=== PATIENT | female | born 1980 | race Caucasian/White ===

== ENCOUNTER 2016-11-08 13:42 | Emergency (ER) | payer OTHER ==
--- NOTE | 2016-11-08 15:45 | ERPHSYRPT ---
- History of Present Illness Time Seen by Provider: 11/08/16 15:40 Source: patient Exam Limitations: no limitations Physician History: The patient is a 36-year-old female who complains of lower left back pain and left hip pain for 4 days. [place] and did nothing strenuous but was not comfortable on the ride home because of the pain. The pain has continued to worsen over the last few days. She took Tylenol and ibuprofen yesterday but took nothing today. She saw a chiropractor yesterday who manipulated her. The pain is worse today. She complains that the chiropractor did not do any x-rays. Her past medical history is significant for GERD, anxiety, and depression. Timing/Duration: day(s) (4) Method of Injury: unknown Quality: aching Back Pain Location: lumbar spine Severity of Pain-Max: moderate Severity of Pain-Current: moderate Modifying Factors: Improves With: pain medication Associated Symptoms: denies symptoms Previous symptoms: no prior history Allergies/Adverse Reactions: fluconazole [From Diflucan] Allergy (Intermediate, Verified 11/08/16 15:33) Blisters hydromorphone HCl [From Dilaudid] Allergy (Intermediate, Verified 11/08/16 15:33 ) Itching morphine Allergy (Intermediate, Verified 11/08/16 15:33) itch Home Medications: Fluoxetine HCl [Prozac] 20 mg PO DAILY 01/11/15 [History] Lorazepam 0.5 mg [Ativan 0.5 MG] 0.5 mg PO DAILY PRN PRN 01/11/15 [History ] Loperamide HCl 2 mg [Imodium 2 mg] 2 mg PO QID PRN PRN 06/25/15 [History] Hx Tetanus, Diphtheria Vaccination/Date Given: Yes Hx Influenza Vaccination/Date Given: No Hx Pneumococcal Vaccination/Date Given: No - Review of Systems Constitutional: No Fever, No Chills Eyes: No Symptoms Ears, Nose, & Throat: No Symptoms Respiratory: No Cough, No Dyspnea Cardiac: No Chest Pain, No Edema, No Syncope Abdominal/Gastrointestinal: No Abdominal Pain, No Nausea, No Vomiting, No Diarrhea Genitourinary Symptoms: No Dysuria Musculoskeletal: Back Pain Skin: No Rash Neurological: No Dizziness, No Focal Weakness, No Sensory Changes Psychological: No Symptoms Endocrine: No Symptoms Hematologic/Lymphatic: No Symptoms Immunological/Allergic: No Symptoms All Other Systems: Reviewed and Negative - Past Medical History Pertinent Past Medical History: Yes Neurological History: No Pertinent History ENT History: No Pertinent History Cardiac History: Hypertension Respiratory History: No Pertinent History Endocrine Medical History: No Pertinent History Musculoskeletal History: No Pertinent History GI Medical History: Gallbladder Disease History: No Pertinent History Psycho-Social History: Anxiety Female Reproductive Disorders: No Pertinent History Other Medical History: no longer tx for hypertension presumed ulcer no scope - Past Surgical History Past Surgical History: Yes Gastrointestinal: Cholecystectomy Genitourinary: No Pertinent History Musculoskeletal: No Pertinent History Female Surgical History: Section, Tubal Ligation Other Surgical History: BILAT FEET--BUNIONS - Social History Smoking Status: Light tobacco smoker Exposure to second hand smoke: No Drug Use: none Patient Lives Alone: No - Nursing Vital Signs Nursing Vital Signs: Initial Vital Signs Temperature 99.1 F 11/08/16 15:27 Pulse Rate 82 11/08/16 15:27 Respiratory Rate 16 11/08/16 15:27 Blood Pressure 137/89 11/08/16 15:27 O2 Sat by Pulse Oximetry 98 11/08/16 15:27 Pain Scale Pain Intensity 10 - Physical Exam General Appearance: mild distress Eye Exam: PERRL/EOMI, eyes nml inspection Ears, Nose, Throat Exam: normal ENT inspection Neck Exam: normal inspection, non-tender, supple, full range of motion, No meningismus, No midline tenderness Respiratory Exam: normal breath sounds, lungs clear, No respiratory distress Cardiovascular Exam: regular rate/rhythm, normal heart sounds Gastrointestinal Exam: soft, No tenderness, No mass Pelvic Exam: not done Rectal Exam: not done Back Exam: decreased range of motion, other (Palpation of the lower back reveals tenderness of the distal portion of the left paraspinous muscle. 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 nml as tested, normal mood/affect, nml station & gait, sensation nml, No motor deficits Skin Exam: normal color, warm, dry, No rash SpO2 Interpretation: normal - Radiology Exams Left Hip X-ray Interpretation: Interpreted by me, Negative L-Spine X-ray Interpretation: Interpreted by me, Negative Ordered Tests: Active Orders 24 hr Category Date Time Status HIP UNI (2V) INCL PEL IF DONE Stat Exams 11/08/16 15:51 Taken LUMBAR LIMITED (2 OR 3 VIEWS) Stat Exams 11/08/16 15:50 Taken UA W/ MICROSCOPIC Stat Lab 11/08/16 17:15 Completed Medication Summary Discontinued Medications Generic Name Dose Route Start Last Admin Trade Name Mackenzie PRN Reason Stop Dose Admin Dexamethasone Sodium Phosphate 10 mg 11/08/16 15:50 11/08/16 16:11 Decadron 10mg Inj. IM 11/08/16 15:51 10 mg STAT ONE Administration Dexamethasone Sodium Phosphate Confirm 11/08/16 15:58 Decadron 10mg Inj. Administered 11/08/16 15:59 Dose 10 mg .ROUTE .STK-MED ONE Ketorolac Tromethamine 60 mg 11/08/16 15:50 11/08/16 16:11 Toradol 30 Mg Injection IM 11/08/16 15:51 60 mg STAT ONE Administration Ketorolac Tromethamine Confirm 11/08/16 15:57 Toradol 30 Mg Injection Administered 11/08/16 15:58 Dose 60 mg .ROUTE .STK-MED ONE Lab/Rad Data: Laboratory Results 11/08/16 Range/Units 17:15 Ur Collection Type CCMS Urine Color YELLOW (YELLOW) Urine Appearance CLEAR (CLEAR) Urine pH 5.0 (5-6) Ur Specific [place] 1.020 (1.005-1.025) Urine Protein NEGATIVE (Negative) Urine Ketones NEGATIVE (NEGATIVE) Urine Blood TRACE NON-HEM (0-5) [place]/ul Urine Nitrite NEGATIVE (NEGATIVE) Urine Bilirubin NEGATIVE (NEGATIVE) Urine Urobilinogen NORMAL (0-1) mg/dL Ur Leukocyte Esterase NEGATIVE (NEGATIVE) Urine Microscopic RBC 0-2 (0-2) /HPF Ur Epithelial Cells MODERATE (FEW) /HPF Urine Mucus SLIGHT (NEGATIVE) /HPF Urine Glucose NEGATIVE (NEGATIVE) mg/dL Specimen Received 11-08-16 1739 - Progress Progress: improved Counseled pt/family regarding: lab results, diagnosis, rad results - Departure Time of Disposition: 17:54 Departure Disposition: Home Clinical Impression: Back pain, Hip pain Condition: Stable Critical Care Time: No Additional Instructions: You have low back pain and left hip pain. You were given a Toradol 60 mg and Decadron 10 mg IM injections in the ER. Apply ice to the areas as needed. Take Tylenol and ibuprofen as needed. Take Flexeril 5 mg every 8 hours as needed. Follow-up as needed. Prescriptions: Cyclobenzaprine HCl [Flexeril] 5 mg PO Q8H PRN PRN #10 tablet PRN Reason: Pain
[2016-11-08] MEDS ORDERED: TORAdol 30 mg Injection IM ONE (15:50)
[2016-11-08] MEDS ORDERED: DECADRON 10MG INJ. IM ONE (15:50)
[2016-11-08] MEDS ORDERED: TORAdol 30 mg Injection ONE (15:57)
[2016-11-08] MEDS ORDERED: DECADRON 10MG INJ. ONE (15:58)
[2016-11-08 17:39] LABS: Bilirubin NEGATIVE (NEGATIVE); Blood TRACE NON-HEM Ery/ul (0-5); COMPLETE URINE MICROSCOPIC? YES; Collection Type CCMS; Glucose NEGATIVE (NEGATIVE); Leukocyte Esterase NEGATIVE (NEGATIVE)
[2016-11-08 17:40] LABS: Mucus SLIGHT /HPF (NEGATIVE)
[2016-11-08 17:41] LABS: ADD URINE CULTURE? NO (NO); Epithelial Cells MODERATE /HPF (FEW)
[2016-11-08 18:07] VITALS: BP 139/88; PULSE 85; O2SAT 96
--- NOTE | 2016-11-08 22:29 | XRAY ---
Indication: Left hip pain for 5 days. No known injury. Comparison: None 2 views of the left hip demonstrates normal bones, articulation, and soft tissues.
--- NOTE | 2016-11-08 22:31 | XRAY ---
Indication: Low back pain for 5 days. No known injury. Comparison: None 3 views of the lumbar spine demonstrates 5 lumbar vertebral segments in normal alignment with disc spaces maintained and cholecystectomy clips. No bony, articular, or soft tissue abnormalities.
== END 2016-11-08 18:11 | disposition home or self-care (01) ==
LOC: ED 13:42
DX: M54.5 Low back pain (principal); M25.552 Pain in left hip; I10 Essential (primary) hypertension
CPT/HCPCS: 72100; 73502; 81000; 96372; 99284; J1100; J1885

== ENCOUNTER 2017-08-21 13:14 | Emergency (ER) | payer OTHER, MEDICARE ==
--- NOTE | 2017-08-21 14:58 | ERPHSYRPT ---
- History of Present Illness Time Seen by Provider: 08/21/17 14:37 Source: patient Exam Limitations: no limitations Patient Subjective Stated Complaint: pt here for a headache since yesterday, and today states today her b/p is high, Triage Nursing Assessment: pt walked in ,alert,resp easy, skin w/d/p Physician History: The patient is a 37-year-old female who complains of having a headache that began last night and continuing today. She took some ibuprofen last night but has not taken ibuprofen or Tylenol today. She is concerned because her blood pressure monitor at home was reading high for systolic and diastolic. She states her first reading was approximately 150/121. About 6 years ago her blood pressure was running high it has been fine ever since. She seldom has headaches. Her headache now appears to be more on the top of her head. her child is ill with nausea and vomiting. She has no other complaints, except light and noise bothers her. She also states she has seen floaters in her eyes after starting this headache. Her past medical history is significant for anxiety. Timing/Duration: yesterday Quality: aching Head Pain Location: frontal Severity of Pain-Max: moderate Severity of Pain-Current: moderate Recent Head Trauma: no recent headache/trauma Modifying Factors: Improves With: exposure to light, noise Associated Symptoms: scotoma, vision changes, visual disturbance Previous symptoms: no prior history Allergies/Adverse Reactions: fluconazole [From Diflucan] Allergy (Intermediate, Verified 08/21/17 13:44) Blisters hydromorphone HCl [From Dilaudid] Allergy (Intermediate, Verified 08/21/17 13:44 ) Itching morphine Allergy (Intermediate, Verified 08/21/17 13:44) itch Home Medications: Fluoxetine HCl [Prozac] 20 mg PO DAILY 01/11/15 [History] Lorazepam 0.5 mg [Ativan 0.5 MG] 0.5 mg PO DAILY PRN PRN 01/11/15 [History ] Bupropion HCl [Wellbutrin] 150 mg DAILY 08/21/17 [History] Hx Tetanus, Diphtheria Vaccination/Date Given: Yes Hx Influenza Vaccination/Date Given: Yes Hx Pneumococcal Vaccination/Date Given: No Immunizations Up to Date: Yes - Review of Systems Constitutional: No Fever, No Chills Eyes: Photophobia Ears, Nose, & Throat: No Symptoms Respiratory: No Cough, No Dyspnea Cardiac: No Chest Pain, No Edema, No Syncope Abdominal/Gastrointestinal: No Abdominal Pain, No Nausea, No Vomiting, No Diarrhea Genitourinary Symptoms: No Dysuria Musculoskeletal: No Back Pain, No Neck Pain Skin: No Rash Neurological: Headache, No Dizziness, No Focal Weakness, No Sensory Changes Psychological: No Symptoms Endocrine: No Symptoms Hematologic/Lymphatic: No Symptoms Immunological/Allergic: No Symptoms All Other Systems: Reviewed and Negative - Past Medical History Pertinent Past Medical History: Yes Neurological History: No Pertinent History ENT History: No Pertinent History Cardiac History: Hypertension Respiratory History: No Pertinent History Endocrine Medical History: No Pertinent History Musculoskeletal History: No Pertinent History GI Medical History: Gallbladder Disease History: No Pertinent History Psycho-Social History: Anxiety Female Reproductive Disorders: No Pertinent History Other Medical History: no longer tx for hypertension presumed ulcer no scope - Past Surgical History Past Surgical History: Yes Gastrointestinal: Cholecystectomy Genitourinary: No Pertinent History Musculoskeletal: No Pertinent History Female Surgical History: Section, Tubal Ligation Other Surgical History: BILAT FEET--BUNIONS - Social History Smoking Status: Never smoker Exposure to second hand smoke: No Drug Use: none Patient Lives Alone: No - Female History Hx Last Menstrual Period: hyster Hx Now: No - Nursing Vital Signs Nursing Vital Signs: Initial Vital Signs Temperature 97.9 F 08/21/17 13:39 Pulse Rate 82 08/21/17 13:39 Respiratory Rate 16 08/21/17 13:39 Blood Pressure 147/91 08/21/17 13:39 Pain Scale Pain Intensity 10 - Physical Exam General Appearance: anxiety Eye Exam: PERRL/EOMI Ears, Nose, Throat Exam: normal ENT inspection, moist mucous membranes Neck Exam: normal inspection, supple, full range of motion, No meningismus Respiratory Exam: normal breath sounds, lungs clear Cardiovascular Exam: regular rate/rhythm, normal heart sounds Gastrointestinal/Abdominal Exam: soft, No tenderness, No distention Back Exam: normal inspection, normal range of motion Extremity Exam: normal inspection Mental Status Exam: alert, oriented x 3, cooperative shrimp peeler Exam: normal speech, PERRL, No facial droop Coordination/Gait Exam: normal cerebellar function Motor/Sensory Exam: no motor deficit, no sensory deficit Skin Exam: normal color, warm, dry, No rash SpO2 Interpretation: normal Oxygen Delivery: Room Air - CT Exams Head CT Interpretation: Negative (per Dr Coughlin.), Tele-radiologist Report Ordered Tests: Active Orders 24 hr Category Date Time Status IV Insertion STAT Care 08/21/17 15:04 Active HEAD WITHOUT CONTRAST [CT] Stat Exams 08/21/17 17:21 Taken BMP Stat Lab 08/21/17 15:15 Completed CBC W DIFF Stat Lab 08/21/17 15:15 Completed UA W/RFX UR CULTURE Stat Lab 08/21/17 16:10 Completed Medication Summary Discontinued Medications Generic Name Dose Route Start Last Admin Trade Name Freq PRN Reason Stop Dose Admin Sodium Chloride 1,000 mls @ 999 mls/hr 08/21/17 15:04 08/21/17 15:32 Sodium Chloride 0.9% 1000 Ml IV 08/21/17 16:04 999 mls/hr .Q1H1M STA Administration Sodium Chloride Confirm 08/21/17 15:28 Sodium Chloride 0.9% 1000 Ml Administered 08/21/17 15:29 Dose 1,000 mls @ ud .ROUTE .STK-MED ONE Ketorolac Tromethamine 30 mg 08/21/17 15:04 08/21/17 15:33 Toradol 30 Mg Injection IV 08/21/17 15:05 30 mg STAT ONE Administration Ketorolac Tromethamine Confirm 08/21/17 15:28 Toradol 30 Mg Injection Administered 08/21/17 15:29 Dose 30 mg .ROUTE .STK-MED ONE Promethazine HCl 25 mg 08/21/17 15:04 08/21/17 15:33 Phenergan 25 Mg Inj IV 08/21/17 15:05 25 mg STAT ONE Administration Promethazine HCl Confirm 08/21/17 15:28 Phenergan 25 Mg Inj Administered 08/21/17 15:29 Dose 25 mg .ROUTE .STK-MED ONE Lab/Rad Data: Laboratory Result Diagrams 08/21/17 15:15 08/21/17 15:15 Laboratory Results 08/21/17 08/21/17 08/21/17 Range/Units 16:10 15:15 15:15 WBC 5.7 (4.0-10.5) K/mm3 RBC 4.32 (4.1-5.4) M/mm3 Hgb 12.8 (12.0-16.0) gm/dl Hct 38.9 (35-47) % MCV 90.0 (78-100) fl MCH 29.6 (26-32) pg MCHC 32.9 (32-36) g/dl RDW 14.0 (11.5-14.0) % Plt Count 230 (150-450) K/mm3 MPV 10.3 H (6-9.5) fl Gran % 57.8 (36.0-66.0) % Eos # (Auto) 0.12 (0-0.5) Absolute Lymphs (auto) 1.89 (1.0-4.6) Absolute Monos (auto) 0.37 (0.0-1.3) Lymphocytes % 33.4 (24.0-44.0) % Monocytes % 6.5 (0.0-12.0) % Eosinophils % 2.1 (0.00-5.0) % Basophils % 0.2 (0.0-0.4) % Absolute Granulocytes 3.27 (1.4-6.9) Basophils # 0.01 (0-0.4) Sodium 145 (137-145) mmol/L Potassium 4.0 (3.5-5.1) mmol/L Chloride 108 H (98-107) mmol/L Carbon Dioxide 26 (22-30) mmol/L Anion Gap 15.8 H (5-15) MEQ/L BUN 13 (7-17) mg/dL Creatinine 0.73 (0.52-1.04) mg/dL Estimated GFR > 60.0 ML/MIN Glucose 80 (74-106) mg/dL Calcium 9.6 (8.4-10.2) mg/dL Ur Collection Type VOID Urine Color YELLOW (YELLOW) Urine Appearance CLEAR (CLEAR) Urine pH 6.0 (5-6) Ur Specific [place] 1.015 (1.005-1.025) Urine Protein NEGATIVE (Negative) Urine Ketones SMALL (NEGATIVE) Urine Blood NEGATIVE (0-5) [place]/ul Urine Nitrite NEGATIVE (NEGATIVE) Urine Bilirubin NEGATIVE (NEGATIVE) Urine Urobilinogen NORMAL (0-1) mg/dL Ur Leukocyte Esterase NEGATIVE (NEGATIVE) Urine Culture Reflexed NO (NO) Urine Glucose NEGATIVE (NEGATIVE) mg/dL Specimen Received 08/21/17 16:15 - Progress Progress: improved Air Movement: good Counseled pt/family regarding: lab results, diagnosis, rad results - Departure Time of Disposition: 18:25 Departure Disposition: Home Clinical Impression: Headache Condition: Stable Critical Care Time: No Referrals: MALI BRICE [Primary Care Provider] - Additional Instructions: You had a headache. Her head CT was normal. You were given Toradol 30 mg, Phenergan 25 mg, and fluid by IV in the ER. Follow-up in one to 2 days if the condition returns.
[2017-08-21] MEDS ORDERED: TORAdol 30 mg Injection IV ONE (15:04)
[2017-08-21] MEDS ORDERED: Sodium Chloride 0.9% 1000 ML 1,000 ML IV STA (15:04)
[2017-08-21] MEDS ORDERED: TORAdol 30 mg Injection ONE (15:28)
[2017-08-21] MEDS ORDERED: Phenergan 25 MG INJ ONE (15:28)
[2017-08-21] MEDS ORDERED: Sodium Chloride 0.9% 1000 ML 1,000 ML ONE (15:28)
[2017-08-21] MEDS: Phenergan 25 MG INJ IV ONE (15:33)
[2017-08-21 16:06] LABS: BASOPHIL % 0.2 % (0.0-0.4); Basophil (Absolute #) 0.01 (0-0.4); Eosinophil % 2.1 % (0.00-5.0); Eosinophil (Absolute #) 0.12 (0-0.5); Granulocyte Absolute (ANC) 3.27 (1.4-6.9); Granulocytes % 57.8 % (36.0-66.0); Hematocrit 38.9 % (35-47); Hemoglobin 12.8 gm/dl (12.0-16.0); Lymphocyte (Absolute #) 1.89 (1.0-4.6); Lymphocytes % 33.4 % (24.0-44.0); Mean Corpuscular Hemoglobin 29.6 pg (26-32); Mean Corpuscular Hgb Concent. 32.9 g/dl (32-36); Mean Platelet Volume 10.3 fl (6-9.5); Monocyte (Absolute #) 0.37 (0.0-1.3); Monocytes % 6.5 % (0.0-12.0); Platelet Count 230 K/mm3 (150-450); Red Blood Count 4.32 M/mm3 (4.1-5.4); White Blood Count 5.7 K/mm3 (4.0-10.5)
[2017-08-21 16:10] LABS: ANION GAP 15.8 MEQ/L (5-15); BLOOD UREA NITROGEN 13 mg/dL (7-17); CHLORIDE 108 mmol/L (98-107); Calcium 9.6 mg/dL (8.4-10.2); Carbon Dioxide 26 mmol/L (22-30); Creatinine 1 0.73 mg/dL (0.52-1.04); Glucose 80 mg/dL (74-106); SODIUM 145 mmol/L (137-145)
[2017-08-21 16:20] LABS: Appearance CLEAR (CLEAR); Bilirubin NEGATIVE (NEGATIVE); Blood NEGATIVE Ery/ul (0-5); Glucose NEGATIVE (NEGATIVE); Ketones SMALL (NEGATIVE); Leukocyte Esterase NEGATIVE (NEGATIVE); Nitrite NEGATIVE (NEGATIVE); Protein,Urine Dip NEGATIVE (Negative); Specific Gravity 1.015 (1.005-1.025); Urobilinogen NORMAL mg/dL (0-1)
[2017-08-21 18:28] VITALS: PULSE 70
[2017-08-21 18:29] VITALS: BP 124/77; O2SAT 97
--- NOTE | 2017-08-22 08:29 | XRAY ---
Indication: Headache 2 days. Multiple contiguous axial images obtained through the head without contrast. Comparison: None Normal appearing brain parenchyma, ventricles, and bony calvarium. Visualized paranasal sinuses and mastoid air cells are clear. Impression: Normal CT head without contrast exam. CT DI 68.32
== END 2017-08-21 18:40 | disposition home or self-care (01) ==
LOC: ED 13:14
DX: R51 Headache (principal); I10 Essential (primary) hypertension; F41.9 Anxiety disorder, unspecified
CPT/HCPCS: 36000; 36415; 70450; 80048; 81002; 85025; 96360; 96374; 96375; 99284; J1885; J2550

== ENCOUNTER 2018-05-21 15:34 | Emergency (ER) | payer OTHER ==
[2018-05-21 17:38] VITALS: PULSE 65; O2SAT 98
[2018-05-21 17:43] LABS: ALBUMIN 4.4 g/dL (3.5-5.0); ALKALINE PHOSPHATASE 99 U/L (38-126); AMYLASE 77 U/L (30-110); BLOOD UREA NITROGEN 18 mg/dL (7-17); CHLORIDE 105 mmol/L (98-107); Calcium 9.5 mg/dL (8.4-10.2); Carbon Dioxide 24 mmol/L (22-30); Creatinine 1 0.77 mg/dL (0.52-1.04); Glucose 82 mg/dL (74-106); LIPASE 99 U/L (23-300); SGOT/AST 23 U/L (14-36); SGPT/ALT 26 U/L (0-35); SODIUM 139 mmol/L (137-145); Total Protein 7.5 g/dL (6.3-8.2)
[2018-05-21 17:45] LABS: ANION GAP 14 MEQ/L (5-15)
[2018-05-21] MEDS ORDERED: CITROMA 296 ML PO ONE (17:50)
--- NOTE | 2018-05-21 17:53 | ERPHSYRPT ---
- History of Present Illness Time Seen by Provider: 05/21/18 15:50 Historian: patient Exam Limitations: no limitations Patient Subjective Stated Complaint: pt reports abd pain since monday, states she had a sudden onset of sharp pain to the left lower abdomen that day but the pain subsided. states now she feels bloated and uncomfortable. denies any N/V/D. Triage Nursing Assessment: pt is aox3, pupils perrl, afebrile, resps easy and non labored, radial pulses strong and equal, cap refill < 3 seconds. abd soft and tender with palpation to the LLQ, bowel sounds are present and hyperactive x4. pt skin is pink warm dry, mucous membranes appear moist. Physician History: 37 y/o overweight white female presents with 2 day h/o left lower quadrant abd pain. no n/v/d. pts pain now a quiver but deep. pt has had a total laparoscopic hysterectomy for severe endometriosis. pt has had a cholecystectomy. Timing/Duration: day(s) (2), improved Activities at Onset: none Quality: sharpness, stabbing (at first now a quiver) Abdominal Pain Onset Location: LLQ Pain Radiation: no radiation Severity of Pain-Max: mild Severity of Pain-Current: mild Modifying Factors: Improves With: nothing Associated Symptoms: No chest pain, No diaphoresis, No diarrhea, No nausea, No neck pain, No shortness of breath, No syncope, No vomiting Previous symptoms: no prior history Allergies/Adverse Reactions: fluconazole [From Diflucan] Allergy (Intermediate, Verified 08/21/17 13:44) Blisters hydromorphone HCl [From Dilaudid] Allergy (Intermediate, Verified 08/21/17 13:44 ) Itching morphine Allergy (Intermediate, Verified 08/21/17 13:44) itch Home Medications: Fluoxetine HCl [Prozac] 20 mg PO DAILY 01/11/15 [History] Lorazepam 0.5 mg [Ativan 0.5 MG] 0.5 mg PO DAILY PRN PRN 01/11/15 [History ] Bupropion HCl [Wellbutrin] 150 mg DAILY 08/21/17 [History] Hx Tetanus, Diphtheria Vaccination/Date Given: Yes Hx Influenza Vaccination/Date Given: Yes Hx Pneumococcal Vaccination/Date Given: No Immunizations Up to Date: Yes - Review of Systems Constitutional: No Symptoms Eyes: No Symptoms Ears, Nose, & Throat: No Symptoms Respiratory: No Symptoms, No Cough, No Dyspnea, No Stridor, No Wheezing Cardiac: No Symptoms Abdominal/Gastrointestinal: Abdominal Pain (llq), No Nausea, No Vomiting, No Diarrhea Genitourinary Symptoms: No Symptoms, No Dysuria, No Frequency, No Hematuria Musculoskeletal: No Symptoms, No Back Pain Skin: No Symptoms Neurological: No Symptoms Psychological: No Symptoms Endocrine: No Symptoms Hematologic/Lymphatic: No Symptoms Immunological/Allergic: No Symptoms All Other Systems: Reviewed and Negative - Past Medical History Pertinent Past Medical History: Yes Neurological History: No Pertinent History ENT History: No Pertinent History Cardiac History: Hypertension Respiratory History: No Pertinent History Endocrine Medical History: No Pertinent History Musculoskeletal History: No Pertinent History GI Medical History: Gallbladder Disease History: No Pertinent History Psycho-Social History: Anxiety Female Reproductive Disorders: No Pertinent History Other Medical History: no longer tx for hypertension presumed ulcer no scope - Past Surgical History Past Surgical History: Yes Gastrointestinal: Cholecystectomy Genitourinary: No Pertinent History Musculoskeletal: No Pertinent History Female Surgical History: Section, Tubal Ligation Other Surgical History: BILAT FEET--BUNIONS - Social History Smoking Status: Never smoker Exposure to second hand smoke: No Drug Use: none Patient Lives Alone: No - Female History Hx Last Menstrual Period: HYST Hx Now: No - Nursing Vital Signs Nursing Vital Signs: Initial Vital Signs Temperature 98.7 F 05/21/18 15:46 Pulse Rate 69 05/21/18 15:46 Respiratory Rate 20 05/21/18 15:46 Blood Pressure 146/87 05/21/18 15:46 O2 Sat by Pulse Oximetry 95 05/21/18 15:46 Pain Scale Pain Intensity 7 - Physical Exam General Appearance: no apparent distress, alert, anxiety Eye Exam: PERRL/EOMI Ears, Nose, Throat Exam: normal ENT inspection, moist mucous membranes Neck Exam: normal inspection, non-tender, supple, full range of motion Respiratory Exam: normal breath sounds, lungs clear, airway intact, No chest tenderness, No respiratory distress, No accessory muscle use, No rhonchi, No wheezing, No stridor Cardiovascular Exam: regular rate/rhythm, normal heart sounds, normal peripheral pulses Gastrointestinal/Abdomen Exam: soft, normal bowel sounds, tenderness (mild llq. no rebound. 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 nml as tested Skin Exam: normal color, warm, dry Lymphatic Exam: No adenopathy SpO2 Interpretation: normal SpO2: 98 O2 Delivery: Room Air - Course Nursing assessment & vital signs reviewed: Yes Ordered Tests: Active Orders 24 hr Category Date Time Status Clean Catch Urine Specimen STAT Care 05/21/18 15:58 Active Enema STAT Care 05/21/18 17:48 Active IV Insertion STAT Care 05/21/18 15:58 Active NPO (ED) STAT Care 05/21/18 15:58 Active ABDOMEN AND PELVIS W/0 CONTRAS [CT] Stat Exams 05/21/18 15:58 Taken AMYLASE Stat Lab 05/21/18 16:45 Completed CBC W DIFF Stat Lab 05/21/18 15:58 Ordered CMP Stat Lab 05/21/18 16:45 Completed LIPASE Stat Lab 05/21/18 16:45 Completed Lactic Acid Stat Lab 05/21/18 15:58 Completed UA W/RFX UR CULTURE Stat Lab 05/21/18 16:04 Ordered Medication Summary Discontinued Medications Generic Name Dose Route Start Last Admin Trade Name Freq PRN Reason Stop Dose Admin Magnesium Citrate 296 ml 05/21/18 17:50 Citroma 296 Ml PO 05/21/18 17:51 1XONLY ONE Lab/Rad Data: Laboratory Result Diagrams 05/21/18 16:45 Laboratory Results 05/21/18 05/21/18 Range/Units 16:45 15:58 Sodium 139 (137-145) mmol/L Potassium 4.0 (3.5-5.1) mmol/L Chloride 105 (98-107) mmol/L Carbon Dioxide 24 (22-30) mmol/L Anion Gap 14 (5-15) MEQ/L BUN 18 H (7-17) mg/dL Creatinine 0.77 (0.52-1.04) mg/dL Estimated GFR > 60.0 ML/MIN Glucose 82 (74-106) mg/dL Lactic Acid 1.1 (0.4-2.0) Calcium 9.5 (8.4-10.2) mg/dL Total Bilirubin 0.20 (0.2-1.3) mg/dL AST 23 (14-36) U/L ALT 26 (0-35) U/L Alkaline Phosphatase 99 (38-126) U/L Serum Total Protein 7.5 (6.3-8.2) g/dL Albumin 4.4 (3.5-5.0) g/dL Amylase 77 (30-110) U/L Lipase 99 (23-300) U/L - Progress Progress: improved, pain not gone completely, re-examined Counseled pt/family regarding: lab results, diagnosis, need for follow-up, rad results - Departure Time of Disposition: 18:08 Departure Disposition: Home Clinical Impression: Constipation by delayed colonic transit Condition: Stable Critical Care Time: No Referrals: SEBASTIAN HOWARD [Primary Care Provider] - Additional Instructions: drink plenty of fluids. use fleets enema rectally and magnesium citrate orally as discussed. may use tylenol and ibuprofen for pain. follow up with primary doctor for further management
[2018-05-21] MEDS ORDERED: CITROMA 296 ML ONE (18:13)
[2018-05-21 18:16] LABS: Appearance SLIGHTLY CLOUDY (CLEAR); Specific Gravity 1.018 (1.005-1.025)
[2018-05-21 18:17] LABS: Leukocyte Esterase NEGATIVE (NEGATIVE); Nitrite NEGATIVE (NEGATIVE)
[2018-05-21 18:18] LABS: Bilirubin NEGATIVE (NEGATIVE); Blood NEGATIVE Ery/ul (0-5); Epithelial Cells RARE /HPF (FEW); Glucose NEGATIVE (NEGATIVE); Ketones NEGATIVE (NEGATIVE); Mucus SLIGHT /HPF (NEGATIVE); Protein,Urine Dip NEGATIVE (Negative); RBC 0-2 /HPF (0-2); Urobilinogen NORMAL mg/dL (0-1); WBC NONE SEEN /HPF (0-5)
[2018-05-21 18:19] VITALS: BP 129/89
[2018-05-21 18:19] LABS: Bacteria NONE SEEN /HPF (NEGATIVE)
[2018-05-21 19:00] LABS: White Blood Count 6.6 K/mm3 (4.0-10.5)
[2018-05-21 19:01] LABS: BASOPHIL % 0.2 % (0.0-0.4); Basophil (Absolute #) 0.01 (0-0.4); Eosinophil % 2.9 % (0.00-5.0); Eosinophil (Absolute #) 0.19 (0-0.5); Granulocyte Absolute (ANC) 3.61 (1.4-6.9); Granulocytes % 54.3 % (36.0-66.0); Hematocrit 39.3 % (35-47); Hemoglobin 12.5 gm/dl (12.0-16.0); Lymphocyte (Absolute #) 2.33 (1.0-4.6); Lymphocytes % 35.1 % (24.0-44.0); Mean Cell Volume 91.6 fl (78-100); Mean Corpuscular Hemoglobin 29.1 pg (26-32); Mean Corpuscular Hgb Concent. 31.8 g/dl (32-36); Mean Platelet Volume 10.2 fl (6-9.5); Monocytes % 7.5 % (0.0-12.0); Platelet Count 245 K/mm3 (150-450); Red Blood Count 4.29 M/mm3 (4.1-5.4); Red Cell Distribution Width 44.1 % (11.5-14.0)
--- NOTE | 2018-05-21 20:24 | XRAY ---
Indication: Left lower quadrant pain. Multiple contiguous axial images obtained through the abdomen and pelvis without contrast as ordered. Comparison: June 27, 2015. Lung bases demonstrates stable bibasilar calcified granulomas. No infiltrate or effusion. Heart is not enlarged. Noncontrasted stomach and bowel loops appear nonobstructed. Normal appendix. There is now mild diffuse scattered colonic fecal debris throughout. No free fluid/air. Stable calcified splenic granuloma, hepatic cysts, nonobstructing micro-calculus in each kidney, and cholecystectomy. Remaining liver, pancreas, spleen, adrenal glands, kidneys, ureters, bladder, and aorta appear unremarkable for noncontrast exam. Osseous structures intact. No ventral or inguinal hernias. Impression: 1. New mild diffuse fecal stasis without obstruction. 2. Stable hepatic cysts, nonobstructing bilateral renal micro-calculus, and evidence for old granulomatous disease. 3. Remaining CT abdomen/pelvis without contrast exam is negative. CTDI 22.45
== END 2018-05-21 18:31 | disposition home or self-care (01) ==
LOC: ED 15:34
DX: K59.00 Constipation, unspecified (principal); K59.01 Slow transit constipation
CPT/HCPCS: 36000; 36415; 74176; 80053; 81001; 82150; 83605; 83690; 85025; 99284; A9270-GY

== ENCOUNTER 2020-05-02 15:41 | Emergency (ER) | payer OTHER ==
--- NOTE | 2020-05-02 16:07 | ERPHSYRPT ---
- History of Present Illness Time Seen by Provider: 05/02/20 15:55 Source: patient Exam Limitations: no limitations Patient Subjective Stated Complaint: HTN Triage Nursing Assessment: Patient ambulated back to ED and transferred self to bed. Patient A+O X 3. Patient's skin pink, warm and dry. Patient complains of HTN that suddenly started while watching tv. Patient denies pain or discomfort. Patient anxious. Lungs clear a/p anderson. No edema noted. Heart tones audible. Physician History: This is a 39-year-old obese white female who has a history of anxiety issues and presents with multiple complaints that began approximately 2 hours ago. Patient states that she first had a headache which has resolved followed by brief anterior central substernal chest fluttering without radiation that resolved on its own followed by mild shortness of breath which is resolved. Patient states she feels very anxious. She has no history of primary cardiac disease. She denies fever or body aches. She has no abdominal pain at this time. She denies use of caffeine on a regular basis. She denies illicit drug use. She occasi onally smokes nicotine cigarettes. Timing/Duration: today Severity: mild Associated Symptoms: chest pain, headaches Allergies/Adverse Reactions: fluconazole [From Diflucan] Allergy (Intermediate, Verified 05/02/20 15:43) Blisters hydromorphone HCl [From Dilaudid] Allergy (Intermediate, Verified 05/02/20 15:43) Itching morphine Allergy (Intermediate, Verified 05/02/20 15:43) itch Home Medications: Fluoxetine HCl [Prozac] 20 mg PO DAILY 01/11/15 [History] Bupropion HCl [Wellbutrin] 150 mg PO DAILY 08/21/17 [History] Hx Tetanus, Diphtheria Vaccination/Date Given: Yes Hx Influenza Vaccination/Date Given: Yes Hx Pneumococcal Vaccination/Date Given: No Immunizations Up to Date: Yes Travel Risk - International Travel Have you traveled outside of the country in past 3 weeks: No - Coronavirus Screening Are you exhibiting any of the following symptoms?: No Close contact with a COVID-19 positive Pt in past 14-21 Days: No - Review of Systems Constitutional: No Symptoms Eyes: No Symptoms Ears, Nose, & Throat: No Symptoms Respiratory: No Symptoms Cardiac: Chest Pain Abdominal/Gastrointestinal: No Symptoms Genitourinary Symptoms: No Symptoms Musculoskeletal: No Symptoms Skin: No Symptoms Neurological: No Symptoms Psychological: No Symptoms Endocrine: No Symptoms Hematologic/Lymphatic: No Symptoms Immunological/Allergic: No Symptoms All Other Systems: Reviewed and Negative - Past Medical History Pertinent Past Medical History: Yes Neurological History: No Pertinent History ENT History: No Pertinent History Cardiac History: Hypertension Respiratory History: No Pertinent History Endocrine Medical History: No Pertinent History Musculoskeletal History: No Pertinent History GI Medical History: Gallbladder Disease History: No Pertinent History Psycho-Social History: Anxiety Female Reproductive Disorders: No Pertinent History Other Medical History: no longer tx for hypertension presumed ulcer no scope - Past Surgical History Past Surgical History: Yes Gastrointestinal: Cholecystectomy Genitourinary: No Pertinent History Musculoskeletal: No Pertinent History Female Surgical History: Section, Tubal Ligation Other Surgical History: BILAT FEET--BUNIONS - Social History Smoking Status: Never smoker Exposure to second hand smoke: No Drug Use: none Patient Lives Alone: No - Female History Hx Last Menstrual Period: hysterectomy 2016 Hx Now: No - Nursing Vital Signs Nursing Vital Signs: Initial Vital Signs Pulse Rate 83 05/02/20 15:45 Respiratory Rate 19 05/02/20 15:45 Blood Pressure 164/108 05/02/20 15:45 O2 Sat by Pulse Oximetry 97 05/02/20 15:45 Pain Scale Pain Intensity 0 - Physical Exam General Appearance: no apparent distress, alert, anxiety Eye Exam: PERRL/EOMI, eyes nml inspection Ears, Nose, Throat Exam: normal ENT inspection, moist mucous membranes Neck Exam: normal inspection, non-tender, supple, full range of motion Respiratory Exam: normal breath sounds, lungs clear, airway intact, No chest tenderness, No respiratory distress Cardiovascular Exam: regular rate/rhythm, normal heart sounds, normal peripheral pulses Gastrointestinal/Abdomen Exam: soft, normal bowel sounds, No tenderness Pelvic Exam: not done Rectal Exam: not done Back Exam: normal inspection, normal range of motion, No CVA tenderness, No vertebral tenderness Extremity Exam: normal inspection, normal range of motion, pelvis stable Neurologic Exam: alert, oriented x 3, cooperative, java flex developer II-XII nml as tested, normal mood/affect, nml cerebellar function, nml station & gait, sensation nml Skin Exam: normal color, warm, dry Lymphatic Exam: No adenopathy SpO2 Interpretation: normal SpO2: 97 O2 Delivery: Room Air - Course Nursing assessment & vital signs reviewed: Yes EKG Interpreted by Me: RATE (80), Sinus Rhythm, NORMAL AXIS, NORMAL INTERVALS, NORMAL QRS, NORMAL ST-T, Other (There is no acute ischemic change on today's EKG. When compared to EKG dated 06/25/2015 no changes are noted.) Ordered Tests: Active Orders 24 hr Category Date Time Status Deliverer Outside STAT Care 05/02/20 16:14 Active EKG-ER Only STAT Care 05/02/20 16:13 Active IV Insertion STAT Care 05/02/20 16:13 Active Pulse Oximetry (ED) STAT Care 05/02/20 16:13 Active CHEST 1 VIEW (PORTABLE) Stat Exams 05/02/20 16:13 Taken CBC W DIFF Stat Lab 05/02/20 16:18 Completed CMP Stat Lab 05/02/20 16:18 Completed D-DIMER QUANTITATIVE Stat Lab 05/02/20 16:18 Completed NT PRO BNP Stat Lab 05/02/20 16:18 Completed PROTIME WITH INR Stat Lab 05/02/20 16:18 Completed TROPONIN Q3H Lab 05/02/20 16:18 Completed TROPONIN Q3H Lab 05/02/20 19:15 Ordered TROPONIN Q3H Lab 05/02/20 22:15 Ordered TROPONIN Q3H Lab 05/03/20 01:15 Ordered TROPONIN Q3H Lab 05/03/20 04:15 Ordered Medication Summary Discontinued Medications Generic Name Dose Route Start Last Admin Trade Name Freq PRN Reason Stop Dose Admin Aspirin 324 mg 05/02/20 16:13 05/02/20 16:18 Baby Aspirin 81 Mg Chew PO 05/02/20 16:14 324 mg STAT ONE Administration Lorazepam 1 mg 05/02/20 16:49 05/02/20 17:04 Ativan 2 Mg/1 Ml Vial IV 05/02/20 16:50 1 mg STAT ONE Administration Lorazepam Confirm 05/02/20 17:01 Ativan 2 Mg/1 Ml Vial Administered 05/02/20 17:02 Dose 2 mg .ROUTE .STK-MED ONE Lab/Rad Data: Laboratory Result Diagrams 05/02/20 16:18 05/02/20 16:18 Laboratory Results 05/02/20 05/02/20 05/02/20 Range/Units 16:18 16:18 16:18 WBC (4.0-10.5) K/mm3 RBC (4.1-5.4) M/mm3 Hgb (12.0-16.0) gm/dl Hct (35-47) % MCV (78-100) fl MCH (26-32) pg MCHC (32-36) g/dl RDW (11.5-14.0) % Plt Count (150-450) K/mm3 MPV (7.5-11.0) fl Gran % (36.0-66.0) % Eos # (Auto) (0-0.5) Absolute Lymphs (auto) (1.0-4.6) Absolute Monos (auto) (0.0-1.3) Lymphocytes % (24.0-44.0) % Monocytes % (0.0-12.0) % Eosinophils % (0.00-5.0) % Basophils % (0.0-0.4) % Absolute Granulocytes (1.4-6.9) Basophils # (0-0.4) PT 12.8 H (9.95-12.35) SECONDS INR 1.13 (0.8-3.0) D-Dimer 254 (215-500) ng/mL Sodium 138 (137-145) mmol/L Potassium 4.0 (3.5-5.1) mmol/L Chloride 105 (98-107) mmol/L Carbon Dioxide 25 (22-30) mmol/L Anion Gap 12.0 (5-15) MEQ/L BUN 17 (7-17) mg/dL Creatinine 0.77 (0.52-1.04) mg/dL Estimated GFR > 60.0 ML/MIN Glucose 110 H (74-106) mg/dL Calcium 9.5 (8.4-10.2) mg/dL Total Bilirubin 0.20 (0.2-1.3) mg/dL AST 27 (14-36) U/L ALT 36 H (0-35) U/L Alkaline Phosphatase 77 (38-126) U/L Troponin I < 0.012 (0.000-0.034) ng/mL NT-Pro-B Natriuret Pep 122 (0-450) pg/mL Serum Total Protein 7.0 (6.3-8.2) g/dL Albumin 4.1 (3.5-5.0) g/dL 05/02/20 Range/Units 16:18 WBC 6.7 (4.0-10.5) K/mm3 RBC 4.06 L (4.1-5.4) M/mm3 Hgb 11.7 L (12.0-16.0) gm/dl Hct 37.7 (35-47) % MCV 92.9 (78-100) fl MCH 28.8 (26-32) pg MCHC 31.0 L (32-36) g/dl RDW 13.8 (11.5-14.0) % Plt Count 250 (150-450) K/mm3 MPV 9.8 (7.5-11.0) fl Gran % 63.4 (36.0-66.0) % Eos # (Auto) 0.15 (0-0.5) Absolute Lymphs (auto) 1.83 (1.0-4.6) Absolute Monos (auto) 0.48 (0.0-1.3) Lymphocytes % 27.2 (24.0-44.0) % Monocytes % 7.1 (0.0-12.0) % Eosinophils % 2.2 (0.00-5.0) % Basophils % 0.1 (0.0-0.4) % Absolute Granulocytes 4.26 (1.4-6.9) Basophils # 0.01 (0-0.4) PT (9.95-12.35) SECONDS INR (0.8-3.0) D-Dimer (215-500) ng/mL Sodium (137-145) mmol/L Potassium (3.5-5.1) mmol/L Chloride (98-107) mmol/L Carbon Dioxide (22-30) mmol/L Anion Gap (5-15) MEQ/L BUN (7-17) mg/dL Creatinine (0.52-1.04) mg/dL Estimated GFR ML/MIN Glucose (74-106) mg/dL Calcium (8.4-10.2) mg/dL Total Bilirubin (0.2-1.3) mg/dL AST (14-36) U/L ALT (0-35) U/L Alkaline Phosphatase (38-126) U/L Troponin I (0.000-0.034) ng/mL NT-Pro-B Natriuret Pep (0-450) pg/mL Serum Total Protein (6.3-8.2) g/dL Albumin (3.5-5.0) g/dL - Progress Progress: improved, re-examined Progress Note: 05/02/20 17:21 Chest x-ray shows no acute cardiopulmonary process Counseled pt/family regarding: lab results, diagnosis, need for follow-up, rad results - Departure Departure Disposition: Home Clinical Impression: Chest pain, non-cardiac, Anxiety Condition: Stable Critical Care Time: No Referrals: SEBASTIAN HOWARD [Primary Care Provider] - Additional Instructions: Follow-up with your primary prescribing physician on Monday, May 04 for further management.
[2020-05-02] MEDS ORDERED: BABY ASPIRIN 81 MG CHEW PO ONE (16:13)
[2020-05-02 16:20] LABS: Absolute Neutrophil Ct (ANC) 4.26 (1.4-6.9); BASOPHIL % 0.1 % (0.0-0.4); Basophil (Absolute #) 0.01 (0-0.4); Eosinophil % 2.2 % (0.00-5.0); Eosinophil (Absolute #) 0.15 (0-0.5); Hematocrit 37.7 % (35-47); Hemoglobin 11.7 gm/dl (12.0-16.0); Lymphocyte (Absolute #) 1.83 (1.0-4.6); Lymphocytes % 27.2 % (24.0-44.0); Mean Cell Volume 92.9 fl (78-100); Mean Corpuscular Hemoglobin 28.8 pg (26-32); Mean Platelet Volume 9.8 fl (7.5-11.0); Monocyte (Absolute #) 0.48 (0.0-1.3); Monocytes % 7.1 % (0.0-12.0); Neutrophil % 63.4 % (36.0-66.0); Platelet Count 250 K/mm3 (150-450); Red Blood Count 4.06 M/mm3 (4.1-5.4); Red Cell Distribution Width 13.8 % (11.5-14.0); White Blood Count 6.7 K/mm3 (4.0-10.5)
[2020-05-02 16:21] LABS: INR 1.13 (0.8-3.0); PROTIME 12.8 SECONDS (9.95-12.35)
[2020-05-02 16:32] LABS: ALBUMIN 4.1 g/dL (3.5-5.0); ALKALINE PHOSPHATASE 77 U/L (38-126); BLOOD UREA NITROGEN 17 mg/dL (7-17); CHLORIDE 105 mmol/L (98-107); Calcium 9.5 mg/dL (8.4-10.2); Carbon Dioxide 25 mmol/L (22-30); Creatinine 1 0.77 mg/dL (0.52-1.04); EST GLOMERULAR FILTRATION RATE > 60.0 ML/MIN; Glucose 110 mg/dL (74-106); NT PRO BNP 122 pg/mL (0-450); SGOT/AST 27 U/L (14-36); SGPT/ALT 36 U/L (0-35); SODIUM 138 mmol/L (137-145)
[2020-05-02] MEDS ORDERED: Ativan 2 MG/1 ML VIAL IV ONE (16:49)
[2020-05-02] MEDS ORDERED: Ativan 2 MG/1 ML VIAL ONE (17:01)
[2020-05-02 17:48] VITALS: BP 134/90
[2020-05-02 17:52] VITALS: PULSE 86; O2SAT 98
--- NOTE | 2020-05-02 18:42 | XRAY ---
Indication: Chest pain/tightness. Comparison: None Portable chest demonstrates normal heart, lungs, and bony thorax.
== END 2020-05-02 17:50 | disposition home or self-care (01) ==
LOC: ED 15:41
DX: R07.89 Other chest pain (principal); F41.9 Anxiety disorder, unspecified; I10 Essential (primary) hypertension; Z79.899 Other long term (current) drug therapy
CPT/HCPCS: 36415; 71045; 80053; 83880; 84484; 85025; 85379; 85610; 93005; 93041; 94760; 96374; 99284; J2060; A9270-GY

== ENCOUNTER 2020-08-10 11:52 | Observation (INO) | payer OTHER ==
[~2020-08-10 11:52] MED LIST: CEFAZOLIN 2 GM-D5W BAG** 2 GM/50 ML ML IV SCH; Lactated Ringers 1,000 ML IV ONE; Lactated Ringers 1,000 ML IV SCH; Sensorcaine 0.25% 10 ML ONE
[2020-08-10] MEDS ORDERED: Lactated Ringers 1,000 ML IV ONE (14:04)
[2020-08-10] MEDS ORDERED: Versed 2 MG/2 ML Injection IV ONE (14:11)
[2020-08-10] MEDS ORDERED: Versed 2 MG/2 ML Injection ONE ×2 (14:14→15:07)
[2020-08-10] MEDS ORDERED: CEFAZOLIN 2 GM-D5W BAG** 2 GM/50 ML ML IV ONE (14:14)
[2020-08-10] MEDS ORDERED: DIPRIVAN 200 MG/20 ML IV ONE (15:07)
[2020-08-10] MEDS ORDERED: SUBLIMAZE 250 MCG/5 ML ONE (15:07)
[2020-08-10] MEDS ORDERED: Zemuron 100 MG/10 ML ONE (15:26)
[2020-08-10] MEDS ORDERED: ROBINUL ONE (16:22)
[2020-08-10] MEDS ORDERED: Zofran 4 MG/2 ML VIAL ONE (17:05)
[2020-08-10] MEDS ORDERED: BRIDION 200MG/2ML IV ONE (17:07)
[2020-08-10] MEDS ORDERED: BENADRYL 50 MG/ML ONE ×2 (17:26→18:34)
[2020-08-10] MEDS ORDERED: Hydromorphone 1 mg/ml Injection ONE ×2 (17:26→17:53)
[2020-08-10] MEDS ORDERED: SUBLIMAZE 100 MCG/2 ML ONE ×3 (17:26→19:47)
[2020-08-10] MEDS ORDERED: TORAdol 30 mg Injection ONE (17:48)
[2020-08-10] MEDS ORDERED: DEMEROL 50 MG ONE (17:58)
[2020-08-10] MEDS ORDERED: Nubain 10 MG/ML ONE (17:58)
[2020-08-10] MEDS ORDERED: Ativan 2 MG/1 ML VIAL ONE (18:22)
[2020-08-10] MEDS ORDERED: Neurontin 100 MG ONE (18:29)
[2020-08-10] MEDS ORDERED: CLARITIN 10 MG ONE (18:53)
[2020-08-10] MEDS: NORCO 5/325 MG PO PRN (19:12)
[2020-08-10 19:16] LABS: Appearance CLEAR (CLEAR); Bilirubin NEGATIVE (NEGATIVE); Blood NEGATIVE Ery/ul (0-5); Epithelial Cells RARE /HPF (FEW); Glucose NEGATIVE (NEGATIVE); Ketones NEGATIVE (NEGATIVE); Leukocyte Esterase NEGATIVE (NEGATIVE); Mucus SLIGHT /HPF (NEGATIVE); Nitrite NEGATIVE (NEGATIVE); Protein,Urine Dip NEGATIVE (Negative); Specific Gravity 1.016 (1.005-1.025); Urobilinogen NEGATIVE mg/dL (0-1)
[2020-08-10] MEDS ORDERED: SUBLIMAZE 100 MCG/2 ML IV PRN (19:28)
[2020-08-10] MEDS ORDERED: Zofran 4 MG/2 ML VIAL IV PRN (19:38)
[2020-08-10] MEDS ORDERED: Ativan 2 MG/1 ML VIAL IV PRN (19:40)
[2020-08-10] MEDS: BENADRYL 50 MG/ML IV PRN (19:50)
[2020-08-10] MEDS: Dextrose 5% -0.45 NaCl 1000 ML 1,000 ML IV SCH (19:53)
[2020-08-10] MEDS ORDERED: Marcaine 0.5%/Epinephrine 10 ML ONE (19:55)
[2020-08-10] MEDS ORDERED: Xylocaine-Mpf 2% 5 Ml Vial ONE (19:56)
[2020-08-10] MEDS: Colace 100 MG PO PRN (21:16)
[2020-08-11] MEDS: SUBLIMAZE 100 MCG/2 ML IV PRN ×2 (01:26→07:44)
[2020-08-11] MEDS: BENADRYL 50 MG/ML IV PRN ×2 (01:54→07:44)
[2020-08-11] MEDS: NORCO 5/325 MG PO PRN ×4 (02:20→21:41)
[2020-08-11] MEDS: Dextrose 5% -0.45 NaCl 1000 ML 1,000 ML IV SCH ×2 (03:44→19:25)
[2020-08-11 05:38] LABS: Hematocrit 36.7 % (35-47); Hemoglobin 11.1 gm/dl (12.0-16.0); Mean Cell Volume 96.1 fl (78-100); Mean Corpuscular Hemoglobin 29.1 pg (26-32); Mean Corpuscular Hgb Concent. 30.2 g/dl (32-36); Platelet Count 226 K/mm3 (150-450); Red Blood Count 3.82 M/mm3 (4.1-5.4); Red Cell Distribution Width 13.9 % (11.5-14.0); White Blood Count 6.5 K/mm3 (4.0-10.5)
[2020-08-11 06:06] LABS: ALBUMIN 3.6 g/dL (3.5-5.0); ALKALINE PHOSPHATASE 73 U/L (38-126); ANION GAP 9.6 MEQ/L (5-15); BLOOD UREA NITROGEN 9 mg/dL (7-17); CHLORIDE 104 mmol/L (98-107); Calcium 8.9 mg/dL (8.4-10.2); Carbon Dioxide 29 mmol/L (22-30); Creatinine 1 0.73 mg/dL (0.52-1.04); EST GLOMERULAR FILTRATION RATE > 60.0 ML/MIN; Glucose 89 mg/dL (74-106); Potassium 4.2 mmol/L (3.5-5.1); SGOT/AST 61 U/L (14-36); SGPT/ALT 64 U/L (0-35); SODIUM 139 mmol/L (137-145); Total Protein 6.1 g/dL (6.3-8.2)
[2020-08-11] MEDS ORDERED: TYLENOL 325 MG PO PRN (07:13)
[2020-08-11] MEDS: Neurontin 100 MG PO SCH ×5 (08:35→21:41)
[2020-08-11] MEDS: Zestril 10 MG PO SCH (09:14)
[2020-08-11] MEDS: Protonix 40MG Tablet PO SCH (09:14)
[2020-08-11] MEDS: Prozac 20 MG PO SCH (09:14)
[2020-08-11] MEDS: ESTRACE 1 MG PO SCH (09:16)
[2020-08-11] MEDS: Wellbutrin XL 150 MG PO SCH (09:16)
--- NOTE | 2020-08-11 09:39 | OP ---
PROCEDURE DATE/TIME: 08/10/2020 1539 PREOPERATIVE DIAGNOSES: 1) Ventral incisional hernia. 2) Umbilical hernia. POSTOPERATIVE DIAGNOSES: 1) Ventral incisional hernia. 2) Umbilical hernia. PROCEDURES: 1) Laparoscopic ventral incisional hernia (incarcerated with fat) repair with mesh. Incarcerated incisional ventral is approximately 1.2 cm in diameter. 2) Umbilical hernia repair with mesh. Umbilical hernia 3 mm in diameter. PROCEDURE PERFORMED BY: Mehnaz Corrigan M.D. COMPLICATIONS: None. ESTIMATED BLOOD LOSS: Less than 10 cc. ANESTHESIA: General. SPECIMEN: Ventral hernia sac with contents. HISTORY: This is a 40 year-old female who presents for ventral incisional hernia repair. She also has an umbilical hernia. Hernia has also been identified on CT scan. Risks, benefits and alternatives have been discussed with her preoperatively. She was seen in the preoperative area. Her abdomen examined. The hernia sites are confirmed. Consent has been obtained. Written H&P done and confirmed. DESCRIPTION OF PROCEDURE: She was then brought back to the operative suite. Anesthesia induced. Prepped and draped in the usual sterile fashion. Complete time out performed. OG tube inserted. Stomach desufflated. After doing a time out, I made a left upper quadrant incision. Veress needle used to access the abdominal cavity. The abdomen then insufflated evenly. 5 mm optical port placed at this skin site under direct visualization. No injuries identified. We placed two more 5 ports along the left side, upsized the left upper quadrant port to a 12 port. The umbilical site was initially identified with fatty tissue that we carefully dissected free this is a very small defect only approximately 3 mm and to the right similar to how it was described on her CT scan there was a vague bulge. We carefully took down the peritoneum and dissected the bulge here. Once we did this there was an obvious hernia defect again it was to the right of midline. It was also scarred this appeared to be an incisional hernia and it is incarcerated with fatty preperitoneal fat. I then gently retracted on the fatty tissue that was incarcerated in the hernia. We continued to pull and I pulled out quite a bit of fatty tissue. The actual amount of tissue that was incarcerated appeared to be approximately 5 x 3 cm. I did have to place this in a laparoscopic bag to fully remove it due to the amount of fatty tissue that was incarcerated into this hernia. After this incarcerated tissue was able to be removed this part of the hernia sac where it could be resected removed. We then measured along the abdomen and selected the appropriate piece of mesh. I also did survey the abdomen. The patient has a mildly appearing fatty liver and outside of this I did not see any obvious external abnormalities on the surfaces. We checked the abdominal wall for any further hernias. I did not see any. She does have a known diastasis on her CT scan. The fascia around her hernia appeared to be healthy. We then selected the 4.5 inch circular [employer] Ventralight mesh. I used 0 Prolene sutures to small stab incision over each hernia to close each hernia with figure-of-8 suture. Once the hernias were closed, we then decreased our abdominal pressure to 12. We placed the mesh into position and pulled up in usual fashion inflating the balloon, this was nice. It covered both hernias. I centered it in between the two hernias so that we would have an excellent overlap. I then tapped this into place with a capture tacker around the periphery and was tacked within at least 1 cm of each other around the entire periphery and then some more centrally taking care to avoid any blood vessels. After this was tacked in there was no bleeding. Everything looked satisfactory. The omentum is laid over the bowels nicely. I closed the 12 port with 0 Vicryl and figure-of-8 suture. We then did another survey. No other obvious issues or abnormalities. We slowly desufflated the abdomen insuring that the mesh was laying flat. We had very nice flat lay of the mesh. The omentum was lying over the top of the bowel and then we carefully removed our left-sided port. Irrigated and closed with buried 4-0 Monocryl, Steri-Strips and sterile dressing. The patient tolerated the procedure very well. There were no immediate complications. I discussed all of her results with her family in the postoperative area. I wrote down her instructions as well as discussed these with the family. She will be following up with me as an outpatient. Tentative plans for admission overnight.
[2020-08-11] MEDS ORDERED: NON-FORMULARY ITEM (Bupropion Hcl [Wellbutrin] 150 mg) PO SCH (10:00)
[2020-08-11] MEDS: TORAdol 10 MG TABLET PO PRN ×2 (11:23→18:35)
[2020-08-11] MEDS: Colace 100 MG PO PRN (12:44)
[2020-08-12] MEDS: TORAdol 10 MG TABLET PO PRN (00:41)
[2020-08-12] MEDS: NORCO 5/325 MG PO PRN ×3 (04:02→12:25)
[2020-08-12] MEDS: Protonix 40MG Tablet PO SCH (09:57)
[2020-08-12] MEDS: Zestril 10 MG PO SCH (09:57)
[2020-08-12] MEDS: Neurontin 100 MG PO SCH ×2 (09:57→12:25)
[2020-08-12] MEDS: Prozac 20 MG PO SCH (09:57)
[2020-08-12] MEDS: Wellbutrin XL 150 MG PO SCH (09:58)
[2020-08-12] MEDS: ESTRACE 1 MG PO SCH (09:58)
[2020-08-12] MEDS: Colace 100 MG PO PRN (10:15)
[2020-08-12] MEDS ORDERED: Miralax Powder 17GM PACKET PO SCH (11:00)
[2020-08-12 12:06] VITALS: BP 135/77; PULSE 71; O2SAT 96
== END 2020-08-12 13:25 | disposition home or self-care (01) ==
LOC: MED SURG 13:27
PROVIDERS: ADMIT Surgery; ATTEND Surgery
DX: K43.0 Incisional hernia with obstruction, without gangrene (principal); K42.9 Umbilical hernia without obstruction or gangrene; Z79.899 Other long term (current) drug therapy
CPT/HCPCS: 36415; 49652; 49654; 76942; 80053; 81001; 85027; 87086; 93268; 94660; 94760; 94762; C1781; G0378; 64488; J0690; J1170; J1200; J1885; J2060; J2175; J2250; J2300; J2405; J2704; J3010; L0625; A9270-GY

== ENCOUNTER 2021-07-23 07:50 | Emergency (ER) | payer OTHER ==
[2021-07-23] MEDS ORDERED: Sodium Chloride 0.9% 1000 ML 1,000 ML IV STA (08:29)
--- NOTE | 2021-07-23 08:35 | ERPHSYRPT ---
- History of Present Illness Historian: patient Exam Limitations: no limitations Patient Subjective Stated Complaint: PT FOR CONSTIPATION, SHE HAS BEEN TAKING MULTI MEDS TO HELP, AND HAS BEEN HAVING SMALL BM SINCE MEDS, CO PAIN TO UPPER ABD , SHE STARTED ON OZEMPIC 3 WEEKS AGO Triage Nursing Assessment: PT ALERT, RESP EASY, FACE MASK IN PLACE, ABD SLIGHTLY TENDER TO TOUCH , SOFT, Physician History: 41 yo wf w diffuse abdominal pain x 1 day. Pain is dull and 5/10 on scale. It has been up to an 8. She has not have a BM x3 days. Pt has had Nausea wo vomiting/melana/hematochezia/dysuria/hematuria. She has had a coral/vental hernia repair x1 for 2 hernias. Timing/Duration: other (1 day pain 3 days constipation) Activities at Onset: rest Quality: dullness, fullness Abdominal Pain Onset Location: generalized abdomen Pain Radiation: no radiation Severity of Pain-Max: severe Severity of Pain-Current: moderate Modifying Factors: Improves With: nothing Associated Symptoms: loss of appetite, nausea, No back, No chest pain, No diaphoresis, No diarrhea, No fever/chills, No fatigue, No headache, No heartburn, No neck pain, No rash, No shortness of breath, No syncope, No vomiting, No weakness Previous symptoms: no prior history Allergies/Adverse Reactions: fluconazole [From Diflucan] Allergy (Intermediate, Verified 07/23/21 08:21) Blisters hydromorphone HCl [From Dilaudid] Allergy (Intermediate, Verified 07/23/21 08:21) Itching morphine Allergy (Intermediate, Verified 07/23/21 08:21) itch Home Medications: Fluoxetine HCl [Prozac] 40 mg PO DAILY 01/11/15 [History] buPROPion HCL [Wellbutrin] 150 mg PO DAILY 08/21/17 [History] Estradiol 1 mg [Estrace 1 mg] 1 mg PO DAILY 08/03/20 [History] Lisinopril 10 mg [Zestril 10 MG] 10 mg PO DAILY 08/03/20 [History] Hx Tetanus, Diphtheria Vaccination/Date Given: Yes Hx Influenza Vaccination/Date Given: Yes Hx Pneumococcal Vaccination/Date Given: No Immunizations Up to Date: Yes Travel Risk - International Travel Have you traveled outside of the country in past 3 weeks: No - Coronavirus Screening Are you exhibiting any of the following symptoms?: No - Vaccine Status Have you recieved a Covid-19 vaccination: Yes Groundskeeper: Moderna - Vaccination Dates Date of 2cond Vaccination (if applicable): 07/27/2020 - Review of Systems Constitutional: No Symptoms Eyes: No Symptoms Ears, Nose, & Throat: No Symptoms Respiratory: No Symptoms Cardiac: No Symptoms Abdominal/Gastrointestinal: No Symptoms, Abdominal Pain, Nausea Genitourinary Symptoms: No Symptoms Musculoskeletal: No Symptoms Skin: No Symptoms Neurological: No Symptoms Psychological: No Symptoms Endocrine: No Symptoms Hematologic/Lymphatic: No Symptoms Immunological/Allergic: No Symptoms - Past Medical History Pertinent Past Medical History: Yes Neurological History: No Pertinent History ENT History: No Pertinent History Cardiac History: Hypertension Respiratory History: Sleep Apnea Endocrine Medical History: No Pertinent History Musculoskeletal History: No Pertinent History GI Medical History: Gallbladder Disease, Hernia History: No Pertinent History Psycho-Social History: Anxiety Female Reproductive Disorders: No Pertinent History Other Medical History: presumed ulcer no scope, skin cancer,wears cpap at night - Past Surgical History Past Surgical History: Yes Neuro Surgical History: No Pertinent History Cardiac: No Pertinent History Respiratory: No Pertinent History Gastrointestinal: Cholecystectomy Genitourinary: No Pertinent History Musculoskeletal: No Pertinent History, Orthopedic Surgery Female Surgical History: Hysterectomy, Section, Tubal Ligation Other Surgical History: right foot great toe-hardware placed,BILAT FEET--BUNIONS, csec x3 - Social History Smoking Status: Former smoker How long have you smoked: 10 YEARS Exposure to second hand smoke: No Drug Use: none Patient Lives Alone: No Significant Family History: no pertinent family hx - Female History Hx Last Menstrual Period: HYSTER Hx Now: No - Nursing Vital Signs Nursing Vital Signs: Initial Vital Signs Temperature 96.8 F 07/23/21 08:09 Pulse Rate 95 H 07/23/21 08:09 Respiratory Rate 18 07/23/21 08:09 Blood Pressure 148/95 07/23/21 08:09 O2 Sat by Pulse Oximetry 99 07/23/21 08:09 Pain Scale Pain Intensity 5 Hypertensive - Physical Exam General Appearance: no apparent distress Eye Exam: PERRL/EOMI, eyes nml inspection Ears, Nose, Throat Exam: normal ENT inspection, TMs normal, pharynx normal, moist mucous membranes Neck Exam: normal inspection, non-tender, supple, full range of motion, No meningismus, No mass, No Brudzinski, No Kernig's Respiratory Exam: normal breath sounds, lungs clear, airway intact Cardiovascular Exam: regular rate/rhythm, normal heart sounds, normal peripheral pulses, capillary refill <2 sec, No murmur Gastrointestinal/Abdomen Exam: soft (Good BS/Mild diffuse TTP), No guarding, No rebound Back Exam: normal inspection, normal range of motion, No CVA tenderness, No vertebral tenderness Extremity Exam: normal inspection, normal range of motion Neurologic Exam: alert, oriented x 3, cooperative, 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 as tested, normal mood/affect, nml cerebellar function, nml station & gait, sensation nml Skin Exam: normal color Lymphatic Exam: No adenopathy SpO2 Interpretation: normal SpO2: 99 O2 Delivery: Room Air - Course Nursing assessment & vital signs reviewed: Yes - CT Exams Abdomen/Pelvis CT Interpretation: Discussed w/radiologist (Hepatic cysts/R renal cysts and microcalculus/small R adrenal adenoma) Ordered Tests: Active Orders 24 hr Category Date Time Status IV Insertion STAT Care 07/23/21 08:29 Completed ABDOMEN AND PELVIS W CONTRAST [CT] Stat Exams 07/23/21 09:26 Completed AMYLASE Stat Lab 07/23/21 09:02 Completed CBC W DIFF Stat Lab 07/23/21 09:02 Completed CMP Stat Lab 07/23/21 09:02 Completed HCG QUALITATIVE,SERUM Stat Lab 07/23/21 09:02 Completed LIPASE Stat Lab 07/23/21 09:02 Completed TROPONIN Q3H Lab 07/23/21 09:02 Completed TROPONIN Q3H Lab 07/23/21 10:54 Completed Medication Summary Discontinued Medications Generic Name Dose Route Start Last Admin Trade Name Freq PRN Reason Stop Dose Admin Sodium Chloride 1,000 mls @ 999 mls/hr 07/23/21 08:29 07/23/21 10:10 Sodium Chloride 0.9% 1000 Ml IV 07/23/21 09:29 Infused .Q1H1M STA Infusion Sodium Chloride Confirm 07/23/21 08:53 Sodium Chloride 0.9% 1000 Ml Administered 07/23/21 08:54 Dose 1,000 mls @ ud .ROUTE .STK-MED ONE Ondansetron HCl 4 mg 07/23/21 10:29 07/23/21 11:05 Ondansetron Hcl 4 Mg/2 Ml Vial IV 07/23/21 10:30 4 mg STAT ONE Administration Ondansetron HCl Confirm 07/23/21 10:47 Ondansetron Hcl 4 Mg/2 Ml Vial Administered 07/23/21 10:48 Dose 4 mg .ROUTE .STK-MED ONE Lab/Rad Data: Laboratory Result Diagrams 07/23/21 09:02 07/23/21 09:02 Laboratory Results 07/23/21 07/23/21 07/23/21 Range/Units 10:54 09:02 09:02 WBC (4.0-10.5) K/mm3 RBC (4.1-5.4) M/mm3 Hgb (12.0-16.0) gm/dl Hct (35-47) % MCV (78-100) fl MCH (26-32) pg MCHC (32-36) g/dl RDW (11.5-14.0) % Plt Count (150-450) K/mm3 MPV (7.5-11.0) fl Gran % (36.0-66.0) % Eos # (Auto) (0-0.5) Absolute Lymphs (auto) (1.0-4.6) Absolute Monos (auto) (0.0-1.3) Lymphocytes % (24.0-44.0) % Monocytes % (0.0-12.0) % Eosinophils % (0.00-5.0) % Basophils % (0.0-0.4) % Absolute Granulocytes (1.4-6.9) Basophils # (0-0.4) Sodium (137-145) mmol/L Potassium (3.5-5.1) mmol/L Chloride (98-107) mmol/L Carbon Dioxide (22-30) mmol/L Anion Gap (5-15) MEQ/L BUN (7-17) mg/dL Creatinine (0.52-1.04) mg/dL Estimated GFR ML/MIN Glucose (74-106) mg/dL Calcium (8.4-10.2) mg/dL Total Bilirubin (0.2-1.3) mg/dL AST (14-36) U/L ALT (0-35) U/L Alkaline Phosphatase (38-126) U/L Troponin I < 0.012 < 0.012 (0.000-0.034) ng/mL Serum Total Protein (6.3-8.2) g/dL Albumin (3.5-5.0) g/dL Amylase (30-110) U/L Lipase (23-300) U/L Serum , Qual NEGATIVE (Negative) Urinalys Dipstick Clnc Urine Color (YELLOW) Urine Appearance (CLEAR) Urine pH (5-6) Ur Specific [place] (1.005-1.025) POC Urine Protein Conf (Negative) Urine Ketones (NEGATIVE) Urine Nitrite (NEGATIVE) Urine Bilirubin (NEGATIVE) Urine Urobilinogen (0-1) mg/dL Urine Leukocytes (NEGATIVE) Urine WBC (Auto) (0-5) /HPF Urine RBC (Auto) (0-2) /HPF U Epithel Cells (Auto) (FEW) /HPF Urine Bacteria (Auto) (NEGATIVE) /HPF Urine RBC (0-5) [place]/ul Urine Mucus (Auto) (NEGATIVE) /HPF Ur Culture Indicated? Urine Glucose (NEGATIVE) mg/dL 07/23/21 07/23/21 07/23/21 Range/Units 09:02 09:02 08:29 WBC 8.1 (4.0-10.5) K/mm3 RBC 4.22 (4.1-5.4) M/mm3 Hgb 12.6 (12.0-16.0) gm/dl Hct 39.1 (35-47) % MCV 92.7 (78-100) fl MCH 29.9 (26-32) pg MCHC 32.2 (32-36) g/dl RDW 13.6 (11.5-14.0) % Plt Count 247 (150-450) K/mm3 MPV 9.7 (7.5-11.0) fl Gran % 62.4 (36.0-66.0) % Eos # (Auto) 0.14 (0-0.5) Absolute Lymphs (auto) 2.15 (1.0-4.6) Absolute Monos (auto) 0.73 (0.0-1.3) Lymphocytes % 26.7 (24.0-44.0) % Monocytes % 9.1 (0.0-12.0) % Eosinophils % 1.7 (0.00-5.0) % Basophils % 0.1 (0.0-0.4) % Absolute Granulocytes 5.03 (1.4-6.9) Basophils # 0.01 (0-0.4) Sodium 138 (137-145) mmol/L Potassium 4.2 (3.5-5.1) mmol/L Chloride 102 (98-107) mmol/L Carbon Dioxide 27 (22-30) mmol/L Anion Gap 13.2 (5-15) MEQ/L BUN 14 (7-17) mg/dL Creatinine 0.82 (0.52-1.04) mg/dL Estimated GFR > 60.0 ML/MIN Glucose 86 (74-106) mg/dL Calcium 9.5 (8.4-10.2) mg/dL Total Bilirubin 0.60 (0.2-1.3) mg/dL AST 31 (14-36) U/L ALT 34 (0-35) U/L Alkaline Phosphatase 93 (38-126) U/L Troponin I (0.000-0.034) ng/mL Serum Total Protein 7.8 (6.3-8.2) g/dL Albumin 4.6 (3.5-5.0) g/dL Amylase 69 (30-110) U/L Lipase 64 (23-300) U/L Serum , Qual (Negative) Urinalys Dipstick Clnc MAIN LAB Urine Color YELLOW (YELLOW) Urine Appearance CLEAR (CLEAR) Urine pH 7.0 (5-6) Ur Specific [place] 1.020 (1.005-1.025) POC Urine Protein Conf NEGATIVE (Negative) Urine Ketones NEGATIVE (NEGATIVE) Urine Nitrite NEGATIVE (NEGATIVE) Urine Bilirubin NEGATIVE (NEGATIVE) Urine Urobilinogen 0.2 (0-1) mg/dL Urine Leukocytes NEGATIVE (NEGATIVE) Urine WBC (Auto) NONE (0-5) /HPF Urine RBC (Auto) NONE (0-2) /HPF U Epithel Cells (Auto) RARE (FEW) /HPF Urine Bacteria (Auto) RARE (NEGATIVE) /HPF Urine RBC NEGATIVE (0-5) [place]/ul Urine Mucus (Auto) SLIGHT (NEGATIVE) /HPF Ur Culture Indicated? NO Urine Glucose NEGATIVE (NEGATIVE) mg/dL - Progress Progress: improved Progress Note: 07/23/21 11:38 1L NS bolus/4mg IV Zofran 04/22/22 13:31 Pt refused pain meds during entire stay Counseled pt/family regarding: lab results, diagnosis, need for follow-up, rad results - Departure Departure Disposition: Home Clinical Impression: Abdominal pain Condition: Stable Critical Care Time: No Referrals: SEBASTIAN HOWARD NP [Primary Care Provider] - Follow up/PCP as directed Instructions: Acute Abdomen (Belly Pain), Adult (DC) Additional Instructions: Follow up with your family MD Return to ER for increasing pain or temperature greater than 100.5 Prescriptions: Dicyclomine HCl 20 mg [Bentyl 20 mg] 20 mg PO Q6HPRN PRN #20 tablet PRN Reason: Pain
[2021-07-23] MEDS ORDERED: Sodium Chloride 0.9% 1000 ML 1,000 ML ONE (08:53)
[2021-07-23 09:06] LABS: Absolute Neutrophil Ct (ANC) 5.03 (1.4-6.9); Basophil (Absolute #) 0.01 (0-0.4); Eosinophil % 1.7 % (0.00-5.0); Eosinophil (Absolute #) 0.14 (0-0.5); Hematocrit 39.1 % (35-47); Hemoglobin 12.6 gm/dl (12.0-16.0); Lymphocyte (Absolute #) 2.15 (1.0-4.6); Lymphocytes % 26.7 % (24.0-44.0); Mean Cell Volume 92.7 fl (78-100); Mean Corpuscular Hemoglobin 29.9 pg (26-32); Mean Corpuscular Hgb Concent. 32.2 g/dl (32-36); Mean Platelet Volume 9.7 fl (7.5-11.0); Monocyte (Absolute #) 0.73 (0.0-1.3); Monocytes % 9.1 % (0.0-12.0); Neutrophil % 62.4 % (36.0-66.0); Platelet Count 247 K/mm3 (150-450); Red Blood Count 4.22 M/mm3 (4.1-5.4); Red Cell Distribution Width 13.6 % (11.5-14.0); White Blood Count 8.1 K/mm3 (4.0-10.5)
[2021-07-23 09:20] LABS: ALBUMIN 4.6 g/dL (3.5-5.0); ALKALINE PHOSPHATASE 93 U/L (38-126); AMYLASE 69 U/L (30-110); ANION GAP 13.2 MEQ/L (5-15); BLOOD UREA NITROGEN 14 mg/dL (7-17); CHLORIDE 102 mmol/L (98-107); Calcium 9.5 mg/dL (8.4-10.2); Carbon Dioxide 27 mmol/L (22-30); Creatinine 1 0.82 mg/dL (0.52-1.04); EST GLOMERULAR FILTRATION RATE > 60.0 ML/MIN; Glucose 86 mg/dL (74-106); LIPASE 64 U/L (23-300); Potassium 4.2 mmol/L (3.5-5.1); SGOT/AST 31 U/L (14-36); SGPT/ALT 34 U/L (0-35); SODIUM 138 mmol/L (137-145); Total Protein 7.8 g/dL (6.3-8.2)
[2021-07-23 10:23] LABS: Bacteria RARE /HPF (NEGATIVE); Epithelial Cells RARE /HPF (FEW); Mucus SLIGHT /HPF (NEGATIVE)
[2021-07-23 10:25] LABS: Appearance CLEAR (CLEAR); Bilirubin NEGATIVE (NEGATIVE); Dipstick done @ ? MAIN LAB; Glucose NEGATIVE (NEGATIVE); Ketones NEGATIVE (NEGATIVE); Nitrite NEGATIVE (NEGATIVE); Protein,Urine Dip NEGATIVE (Negative); RBC NEGATIVE Ery/ul (0-5); Urine Cultured Indicated? NO; Urobilinogen 0.2 mg/dL (0-1)
[2021-07-23] MEDS ORDERED: Zofran 4 MG/2 ML VIAL IV ONE (10:29)
[2021-07-23] MEDS ORDERED: Zofran 4 MG/2 ML VIAL ONE (10:47)
--- NOTE | 2021-07-23 11:30 | XRAY ---
Indication: Abdomen pain. Multiple contiguous axial images obtained through the abdomen and pelvis using 80 cc Isovue 370 contrast. Comparison: May 21, 2018 Lung bases again demonstrates a few tiny calcified granulomas. Minimal bibasilar dependent atelectasis. No infiltrate or effusion. Heart not enlarged. Small left infrahilar calcified node not previously imaged. Noncontrasted stomach and bowel loops nonobstructed with normal appendix. No free fluid/air. Grossly stable multiple hepatic cysts, nonobstructing right renal punctate calculus, tiny calcified splenic granuloma, and cholecystectomy clips. 2 right renal cysts not well seen on previous noncontrast exam. Minimally enlarging 1.8 x 1.3 cm right adrenal adenoma. Remaining liver, pancreas, spleen, adrenal glands, kidneys, ureters, bladder, and aorta appear unremarkable. No pathologic retroperitoneal lymphadenopathy. Osseous structures intact. There has been interval ventral hernia repair with intact mesh graft. Impression: 1. Interval ventral hernia repair. 2. Again chronic findings including hepatic cysts, nonobstructing right renal micro-calculus, right renal cysts, small right adrenal adenoma, and old granulomatous disease. 3. Remaining CT abdomen/pelvis with contrast exam is again negative.
[2021-07-23 12:01] VITALS: BP 145/86; PULSE 89
[2021-07-23 13:32] VITALS: O2SAT 99
== END 2021-07-23 12:01 | disposition home or self-care (01) ==
LOC: ED 07:50
DX: R10.84 Generalized abdominal pain (principal); R11.0 Nausea; I10 Essential (primary) hypertension; Z79.899 Other long term (current) drug therapy
CPT/HCPCS: 36000; 36415; 74177; 80053; 81015; 81025; 82150; 83690; 84484; 85025; 96374; 99284; J2405

== ENCOUNTER 2022-12-13 14:55 | Emergency (ER) | payer OTHER ==
[2022-12-13 15:24] VITALS: TEMP 99.3
[2022-12-13] MEDS ORDERED: BENADRYL 50 MG/ML IV ONE (16:23)
[2022-12-13] MEDS ORDERED: Sodium Chloride 0.9% 1000 ML 1,000 ML IV STA (16:23)
[2022-12-13] MEDS ORDERED: TYLENOL EXTRA STRENGTH 500 MG PO STA (16:23)
[2022-12-13] MEDS ORDERED: Compazine 10 MG/2 ML IV ONE (16:23)
[2022-12-13] MEDS ORDERED: BENADRYL 50 MG/ML ONE (16:25)
[2022-12-13] MEDS ORDERED: TYLENOL EXTRA STRENGTH 500 MG ONE (16:25)
[2022-12-13] MEDS ORDERED: Compazine 10 MG/2 ML ONE (16:26)
[2022-12-13] MEDS ORDERED: Sodium Chloride 0.9% 1000 ML 1,000 ML ONE (16:26)
[2022-12-13 16:33] VITALS: O2SAT 96
[2022-12-13 16:50] LABS: Absolute Neutrophil Ct (ANC) 6.84 x10^3/uL (1.4-6.9); BASOPHIL % 0.3 % (0.0-0.4); Basophil (Absolute #) 0.03 x10^3/uL (0-0.4); Eosinophil % 1.5 % (0.00-5.0); Eosinophil (Absolute #) 0.14 x10^3/uL (0-0.5); Hematocrit 41.5 % (35-47); Hemoglobin 13.2 g/dL (12.0-16.0); IMMATURE GRAN # 0.03 x10^3u/L (0.00-0.03); IMMATURE GRAN % 0.3 % (0.00-0.4); Lymphocytes % 21.8 % (24.0-44.0); Mean Cell Volume 90.2 fL (78-100); Mean Corpuscular Hemoglobin 28.7 pg (26-32); Mean Corpuscular Hgb Concent. 31.8 g/dL (32-36); Mean Platelet Volume 9.2 fL (7.5-11.0); Monocyte (Absolute #) 0.48 x10^3/uL (0.0-1.3); Neutrophil % 71.1 % (36.0-66.0); Platelet Count 288 x10^3/uL (150-450); Red Cell Distribution Width 13.2 % (11.5-14.0); White Blood Count 9.6 x10^3/uL (4.0-10.5)
[2022-12-13 17:05] LABS: ALBUMIN 4.5 g/dL (3.5-5.0); ALKALINE PHOSPHATASE 93 U/L (38-126); ANION GAP 13.2 MEQ/L (5-15); BLOOD UREA NITROGEN 14 mg/dL (7-17); CHLORIDE 107 mmol/L (98-107); Calcium 9.6 mg/dL (8.4-10.2); Carbon Dioxide 24 mmol/L (22-30); Creatinine 1 0.94 mg/dL (0.52-1.04); EST GLOMERULAR FILTRATION RATE > 60.0 ML/MIN; Glucose 91 mg/dL (74-106); Potassium 4.3 mmol/L (3.5-5.1); SGOT/AST 29 U/L (14-36); SGPT/ALT 39 U/L (0-35); SODIUM 140 mmol/L (137-145); Total Protein 7.6 g/dL (6.3-8.2)
--- NOTE | 2022-12-13 17:17 | ERPHSYRPT ---
- History of Present Illness Time Seen by Provider: 12/13/22 17:14 Source: patient Exam Limitations: no limitations Patient Subjective Stated Complaint: Weakness Triage Nursing Assessment: Patient brought into ED per EMS and transferred to bed with assist of 2. Patient A+O X 3. Patient's skin flushed, warm and dry. Patient states she had covid two weeks ago and was feeling better then this past week started feeling bad. Patient states she was getting ready for work and had brushed her teeth and was walking toward to toilet and started feeling weak and diaphoretic and placed herself on the ground. Patient denies hitting head. Patient complains of dizziness, headache 01/10. Physician History: Patient a 42-year-old female presents to our ED via EMS for evaluation of headache, nausea dizziness generalized weakness. Symptoms started today. Patient states she had COVID 2 weeks ago. Patient improved then today worsened. Patient symptoms are constant. Patient received Zofran and Toradol in route. No trauma. No fever. No vomiting or diaphoresis. Symptoms are moderate in intensity. No specific worsening improving factors. Patient states he is otherwise healthy. Patient voices no other complaints or concerns at this time. Portions of this note were created with voice recognition technology. There may be grammatical, spelling, punctuation or sound alike errors Timing/Duration: today Severity: moderate Modifying Factors: Improves With: nothing Associated Symptoms: denies symptoms Allergies/Adverse Reactions: fluconazole [From Diflucan] Allergy (Intermediate, Verified 12/13/22 15:05) Blisters hydromorphone HCl [From Dilaudid] Allergy (Intermediate, Verified 12/13/22 15:05) Itching morphine Allergy (Intermediate, Verified 12/13/22 15:05) itch Home Medications: buPROPion HCL [Wellbutrin] 150 mg PO DAILY 08/21/17 [History] Estradiol 1 mg [Estrace 1 mg] 1 mg PO DAILY 08/03/20 [History] Lisinopril 10 mg [Zestril 10 MG] 10 mg PO DAILY 08/03/20 [History] Duloxetine HCl 30 mg [Cymbalta 30 MG Capsule] 1 tab PO DAILY 12/13/22 [History] Rosuvastatin Calcium 1 tab PO DAILY 12/13/22 [History] Hx Tetanus, Diphtheria Vaccination/Date Given: Yes Hx Influenza Vaccination/Date Given: No Hx Pneumococcal Vaccination/Date Given: No Travel Risk - International Travel Have you traveled outside of the country in past 3 weeks: No - Coronavirus Screening Are you exhibiting any of the following symptoms?: No Close contact with a COVID-19 positive Pt in past 14-21 Days: No - Vaccine Status Have you recieved a Covid-19 vaccination: Yes [employer] Work[employer]: [employer] - Vaccination Dates Date of 2cond Vaccination (if applicable): 07/27/2020 - Review of Systems Constitutional: No Symptoms, No Fever, No Chills Eyes: No Symptoms Ears, Nose, & Throat: No Symptoms Respiratory: No Symptoms, No Cough, No Dyspnea Cardiac: No Symptoms, No Chest Pain, No Edema, No Syncope Abdominal/Gastrointestinal: No Symptoms, No Abdominal Pain, No Nausea, No Vomiting, No Diarrhea Genitourinary Symptoms: No Symptoms, No Dysuria Musculoskeletal: No Symptoms, No Back Pain, No Neck Pain Skin: No Symptoms, No Rash Neurological: No Symptoms, No Dizziness, No Focal Weakness, No Sensory Changes Psychological: No Symptoms Endocrine: No Symptoms Hematologic/Lymphatic: No Symptoms Immunological/Allergic: No Symptoms All Other Systems: Reviewed and Negative - Past Medical History Pertinent Past Medical History: Yes Neurological History: No Pertinent History ENT History: No Pertinent History Cardiac History: Hypertension Respiratory History: Sleep Apnea Endocrine Medical History: No Pertinent History Musculoskeletal History: No Pertinent History GI Medical History: Gallbladder Disease, Hernia History: No Pertinent History Psycho-Social History: Anxiety Female Reproductive Disorders: No Pertinent History Other Medical History: presumed ulcer no scope, skin cancer,wears cpap at night - Past Surgical History Past Surgical History: Yes Neuro Surgical History: No Pertinent History Cardiac: No Pertinent History Respiratory: No Pertinent History Gastrointestinal: Cholecystectomy Genitourinary: No Pertinent History Musculoskeletal: No Pertinent History, Orthopedic Surgery Female Surgical History: Hysterectomy, Section, Tubal Ligation Other Surgical History: right foot great toe-hardware placed,BILAT FEET--BUNIONS, csec x3 - Social History Smoking Status: Former smoker How long have you smoked: 10 YEARS Exposure to second hand smoke: No Drug Use: none Patient Lives Alone: No Significant Family History: no pertinent family hx - Female History Hx Last Menstrual Period: hysterectomy Hx Now: No - Nursing Vital Signs Nursing Vital Signs: Initial Vital Signs Temperature 99.3 F 12/13/22 15:08 Pulse Rate 113 H 12/13/22 15:08 Respiratory Rate 14 12/13/22 15:08 Blood Pressure 154/110 12/13/22 15:08 O2 Sat by Pulse Oximetry 97 12/13/22 15:08 Pain Scale Pain Intensity 10 - Physical Exam General Appearance: no apparent distress, alert Eye Exam: PERRL/EOMI, eyes nml inspection Ears, Nose, Throat Exam: normal ENT inspection, TMs normal, pharynx normal, moist mucous membranes Neck Exam: normal inspection, non-tender, supple, full range of motion Respiratory Exam: normal breath sounds, lungs clear, No respiratory distress Cardiovascular Exam: regular rate/rhythm, normal heart sounds, normal peripheral pulses Gastrointestinal/Abdomen Exam: soft, normal bowel sounds, No tenderness, No mass Back Exam: normal inspection, normal range of motion, No CVA tenderness, No vertebral tenderness Extremity Exam: normal inspection, normal range of motion, pelvis stable Neurologic Exam: alert, oriented x 3, cooperative, normal mood/affect, nml cerebellar function, nml station & gait, sensation nml, No motor deficits Skin Exam: normal color, warm, dry, No rash Lymphatic Exam: No adenopathy SpO2 Interpretation: normal SpO2: 96 O2 Delivery: Room Air - Course Nursing assessment & vital signs reviewed: Yes Ordered Tests: Active Orders 24 hr Category Date Time Status CBC W DIFF Stat Lab 12/13/22 16:40 Completed CMP Stat Lab 12/13/22 16:40 Completed UA W/RFX UR CULTURE Stat Lab 12/13/22 17:32 Completed Medication Summary Discontinued Medications Generic Name Dose Route Start Last Admin Trade Name Mackenzie PRN Reason Stop Dose Admin Acetaminophen 1,000 mg 12/13/22 16:23 12/13/22 16:34 Acetaminophen 500 Mg Tablet PO 12/13/22 16:24 1,000 mg STAT STA Administration Acetaminophen Confirm 12/13/22 16:25 Acetaminophen 500 Mg Tablet Administered 12/13/22 16:26 Dose 1,000 mg .ROUTE .STK-MED ONE Diphenhydramine HCl 50 mg 12/13/22 16:23 12/13/22 16:29 Diphenhydramine Hcl 50 Mg/Ml Vial IV 12/13/22 16:24 50 mg STAT ONE Administration Diphenhydramine HCl Confirm 12/13/22 16:25 Diphenhydramine Hcl 50 Mg/Ml Vial Administered 12/13/22 16:26 Dose 50 mg .ROUTE .STK-MED ONE Sodium Chloride 1,000 mls @ 999 mls/hr 12/13/22 16:23 12/13/22 17:51 Sodium Chloride 0.9% 1000 Ml IV 12/13/22 17:23 Infused .Q1H1M STA Infusion Sodium Chloride Confirm 12/13/22 16:26 Sodium Chloride 0.9% 1000 Ml Administered 12/13/22 16:27 Dose 1,000 mls @ ud .ROUTE .STK-MED ONE Prochlorperazine Edisylate 10 mg 12/13/22 16:23 12/13/22 16:37 Prochlorperazine Edisylate 10 Mg/2 Ml Vial IV 12/13/22 16:24 10 mg STAT ONE Administration Prochlorperazine Edisylate Confirm 12/13/22 16:26 Prochlorperazine Edisylate 10 Mg/2 Ml Vial Administered 12/13/22 16:27 Dose 10 mg .ROUTE .STK-MED ONE Lab/Rad Data: Laboratory Result Diagrams 12/13/22 16:40 12/13/22 16:40 Laboratory Results 12/13/22 12/13/22 12/13/22 Range/Units 17:32 16:45 16:40 WBC (4.0-10.5) x10^3/uL RBC (4.1-5.4) x10^6/uL Hgb (12.0-16.0) g/dL Hct (35-47) % MCV (78-100) fL MCH (26-32) pg MCHC (32-36) g/dL RDW (11.5-14.0) % Plt Count (150-450) x10^3/uL MPV (7.5-11.0) fL Gran % (36.0-66.0) % Immature Gran % (Auto) (0.00-0.4) % Nucleat RBC Rel Count (0.00-0.1) % Eos # (Auto) (0-0.5) x10^3/uL Immature Gran # (Auto) (0.00-0.03) x10^3u/L Absolute Lymphs (auto) (1.0-4.6) x10^3/uL Absolute Monos (auto) (0.0-1.3) x10^3/uL Absolute Nucleated RBC (0.00-0.01) x10^3u/L Lymphocytes % (24.0-44.0) % Monocytes % (0.0-12.0) % Eosinophils % (0.00-5.0) % Basophils % (0.0-0.4) % Absolute Granulocytes (1.4-6.9) x10^3/uL Basophils # (0-0.4) x10^3/uL Sodium 140 (137-145) mmol/L Potassium 4.3 (3.5-5.1) mmol/L Chloride 107 (98-107) mmol/L Carbon Dioxide 24 (22-30) mmol/L Anion Gap 13.2 (5-15) MEQ/L BUN 14 (7-17) mg/dL Creatinine 0.94 (0.52-1.04) mg/dL Estimated GFR > 60.0 ML/MIN Glucose 91 (74-106) mg/dL Calcium 9.6 (8.4-10.2) mg/dL Total Bilirubin 0.30 (0.2-1.3) mg/dL AST 29 (14-36) U/L ALT 39 H (0-35) U/L Alkaline Phosphatase 93 (38-126) U/L Serum Total Protein 7.6 (6.3-8.2) g/dL Albumin 4.5 (3.5-5.0) g/dL Urine Color Yellow (Yellow) Urine Appearance Clear (Clear) Urine pH 5.5 (4.6-8.0) Ur Specific [place] 1.020 (1.005-1.030) Urine Protein Negative (Negative) Urine Glucose (UA) Negative (Negative) mg/dL Urine Ketones Negative (Negative) Urine Blood Negative (Negative) Urine Nitrite Negative (Negative) Urine Bilirubin Negative (Negative) Urine Urobilinogen 1.0 A (0.2) mg/dL Ur Leukocyte Esterase Negative (Negative) U Hyaline Cast (Auto) 3-5 A (0-2) /LPF Urine Microscopic RBC 0-2 (0-5) /HPF Urine Microscopic WBC 0-2 (0-5) /HPF Ur Epithelial Cells Rare (None Seen) /HPF Urine Bacteria None Seen (None Seen) /HPF Urine Culture Reflexed NO (NO) Influenza Type A Ag NEGATIVE (NEGATIVE) Influenza Type B Ag NEGATIVE (NEGATIVE) RSV (PCR) NEGATIVE (NEGATIVE) SARS-CoV-2 (PCR) POSITIVE A (NEGATIVE) Group A Strep Antibody NOT DETECTED (NEGATIVE) 12/13/22 Range/Units 16:40 WBC 9.6 (4.0-10.5) x10^3/uL RBC 4.60 (4.1-5.4) x10^6/uL Hgb 13.2 (12.0-16.0) g/dL Hct 41.5 (35-47) % MCV 90.2 (78-100) fL MCH 28.7 (26-32) pg MCHC 31.8 L (32-36) g/dL RDW 13.2 (11.5-14.0) % Plt Count 288 (150-450) x10^3/uL MPV 9.2 (7.5-11.0) fL Gran % 71.1 H (36.0-66.0) % Immature Gran % (Auto) 0.3 (0.00-0.4) % Nucleat RBC Rel Count 0.0 (0.00-0.1) % Eos # (Auto) 0.14 (0-0.5) x10^3/uL Immature Gran # (Auto) 0.03 (0.00-0.03) x10^3u/L Absolute Lymphs (auto) 2.10 (1.0-4.6) x10^3/uL Absolute Monos (auto) 0.48 (0.0-1.3) x10^3/uL Absolute Nucleated RBC 0.00 (0.00-0.01) x10^3u/L Lymphocytes % 21.8 L (24.0-44.0) % Monocytes % 5.0 (0.0-12.0) % Eosinophils % 1.5 (0.00-5.0) % Basophils % 0.3 (0.0-0.4) % Absolute Granulocytes 6.84 (1.4-6.9) x10^3/uL Basophils # 0.03 (0-0.4) x10^3/uL Sodium (137-145) mmol/L Potassium (3.5-5.1) mmol/L Chloride (98-107) mmol/L Carbon Dioxide (22-30) mmol/L Anion Gap (5-15) MEQ/L BUN (7-17) mg/dL Creatinine (0.52-1.04) mg/dL Estimated GFR ML/MIN Glucose (74-106) mg/dL Calcium (8.4-10.2) mg/dL Total Bilirubin (0.2-1.3) mg/dL AST (14-36) U/L ALT (0-35) U/L Alkaline Phosphatase (38-126) U/L Serum Total Protein (6.3-8.2) g/dL Albumin (3.5-5.0) g/dL Urine Color (Yellow) Urine Appearance (Clear) Urine pH (4.6-8.0) Ur Specific [place] (1.005-1.030) Urine Protein (Negative) Urine Glucose (UA) (Negative) mg/dL Urine Ketones (Negative) Urine Blood (Negative) Urine Nitrite (Negative) Urine Bilirubin (Negative) Urine Urobilinogen (0.2) mg/dL Ur Leukocyte Esterase (Negative) U Hyaline Cast (Auto) (0-2) /LPF Urine Microscopic RBC (0-5) /HPF Urine Microscopic WBC (0-5) /HPF Ur Epithelial Cells (None Seen) /HPF Urine Bacteria (None Seen) /HPF Urine Culture Reflexed (NO) Influenza Type A Ag (NEGATIVE) Influenza Type B Ag (NEGATIVE) RSV (PCR) (NEGATIVE) SARS-CoV-2 (PCR) (NEGATIVE) Group A Strep Antibody (NEGATIVE) - Progress Progress: improved Progress Note: Patient is a 42-year-old female presents to our ED for evaluation of headache dizziness generalized weakness. Patient had similar symptoms 2 weeks ago when she was diagnosed with COVID. Patient improved and symptoms recurred today. Physical exam essentially nonremarkable. Patient arrived via EMS. Patient received Toradol in route. We obtained a laboratory work-up consisting of CBC CMP and rapid strep. COVID test ordered as well. Laboratory work was sent and unremarkable. Strep negative. COVID positive. Patient received Compazine Benadryl and Tylenol as well as a liter of normal saline. Patient reassessed. Symptoms resolved. Patient now requesting discharge. Vital stable. Will discharge patient. Patient agrees to follow-up with her primary care doctor within 48 hours for reevaluation. Portions of this note were created with voice recognition technology. There may be grammatical, spelling, punctuation or sound alike errors Complexity of problems addressed is moderate acute complicated No critical care time Complex of data reviewed and analyzed is moderate. Test ordered test reviewed. Clinical correlation made between laboratory findings and history and physical examination. Patient received medical management accordingly. Patient now feels significantly better and requesting discharge Risk of complication and or risk of morbidity/mortality of patient management is moderate. Patient received IV Benadryl and IV Compazine and normal saline. Oral Tylenol administered as well. Symptomatic management at home. Patient understands the importance of quarantine. Vital stable. Discharge diagnosis is COVID-19 which would explain the entirety of patient's symptomology. Spent to discharge patient approximately 10 minutes. Plan of care established for shared decision making. No social determinants of health present to impede follow-up. Portions of this note were created with voice recognition technology. There may be grammatical, spelling, punctuation or sound alike errors 12/13/22 18:40 Counseled pt/family regarding: lab results, diagnosis, need for follow-up - Departure Departure Disposition: Home Clinical Impression: COVID-19 Condition: Stable Critical Care Time: No Referrals: SEBASTIAN HOWARD NP [Primary Care Provider] - Follow up/PCP as directed Additional Instructions: Discharge/Care Plan CAMELIAABIGAIL RICKI was seen on 12/13/22 in the Emergency Room. The patient was counseled regarding Diagnosis,Lab results, Imaging studies, need for follow up and when to return to the Emergency Room. Prescriptions given: Discharge Note I have spoken with the patient and/or caregivers. I have explained the patient's condition, diagnosis and treatment plan based on the information available to me at this time. I have answered the patient's and/or caregiver's questions and addressed any concerns. The patient and/or caregivers have as good understanding of the patient's diagnosis, condition and treatment plan as can be expected at this point. The vital signs have been stable. The patient's condition is stable and appropriate for discharge from the emergency department. The patient will pursue further outpatient evaluation with the primary care physician or other designated or consulting physician as outlined in the discharge instructions. The patient and/or caregivers are agreeable to this plan of care and follow-up instructions have been explained in detail. The patient and/or caregivers have received these instruction. The patient/and or caregivers are aware that any significant change in condition or worsening of symptoms should prompt an immediate return to this or the closest emergency department or call 911.
[2022-12-13 17:23] LABS: Group A Strep NOT DETECTED (NEGATIVE)
[2022-12-13 17:37] LABS: INFLUENZA A NEGATIVE (NEGATIVE); INFLUENZA B NEGATIVE (NEGATIVE); RESPIRATORY SYNCTIAL VIRUS NEGATIVE (NEGATIVE)
[2022-12-13 17:45] LABS: SARS-CoV-2 Xpert Express POSITIVE (NEGATIVE)
[2022-12-13 17:53] LABS: Appearance Clear (Clear); Bacteria None Seen /HPF (None Seen); Bilirubin Negative (Negative); Blood Negative (Negative); Epithelial Cells Rare /HPF (None Seen); Glucose, Urine Negative (Negative); Ketones Negative (Negative); Leukocyte Esterase Negative (Negative); Nitrite Negative (Negative); Ph 5.5 (4.6-8.0); Protein,Urine Dip Negative (Negative); RBC 0-2 /HPF (0-5); WBC 0-2 /HPF (0-5)
[2022-12-13 17:56] LABS: ADD URINE CULTURE? NO (NO)
[2022-12-13 18:42] VITALS: BP 129/86; PULSE 86; RESP 18
== END 2022-12-13 18:47 | disposition home or self-care (01) ==
LOC: ED 14:55
DX: U07.1 COVID-19 (principal); R51.9 Headache, unspecified; R11.0 Nausea; R42 Dizziness and giddiness; R53.1 Weakness; I10 Essential (primary) hypertension; Z79.899 Other long term (current) drug therapy; Z86.16 Personal history of COVID-19
CPT/HCPCS: 0241U; 36000; 36415; 80053; 81001; 85025; 87651; 96360; 96374; 96375; 99284; J1200; A9270-GY